=== PATIENT | female | born 1980 | race Caucasian/White ===

== ENCOUNTER 2016-10-29 11:55 | Inpatient (IN) ==
[2016-10-29] MEDS ORDERED: SODIUM CHLORIDE 1,000 ML IV STA (12:07)
[2016-10-29 12:33] LABS: BASOPHILS % (AUTO) 0.2 % (0.0-3.0); HEMATOCRIT 38.5 % (37.0-47.0); HEMOGLOBIN 14.3 g/dl (12.0-16.0); IMMATURE GRANULOCYTE % (AUTO) 0.7 % (0.0-5.0); LYMPHOCYTES % (AUTO) 4.8 (10.0-50.0); MEAN CORPUSCULAR HEMOGLOBIN 32.9 pg (27.0-31.0); MEAN CORPUSCULAR HGB CONC 37.1 (31.8-35.4); MEAN CORPUSCULAR VOLUME 88.5 fl (81.0-99.0); MONOCYTES # (AUTO) 0.9 K/uL (0.4-2.0); MONOCYTES % (AUTO) 4.7 (0-10); NEUTROPHILS # (AUTO) 17.8 K/ul (2.0-6.9); NEUTROPHILS % (AUTO) 89.6; PLATELET COUNT 253 10^3/uL (140-440); RED BLOOD COUNT 4.35 10^6/ul (4.20-5.40); WHITE BLOOD COUNT 19.86 K/ul (4.6-10.2)
[2016-10-29 12:41] LABS: BILIRUBIN,URINE Negative (NEGATIVE); KETONES,URINE Trace (NEGATIVE); LEUKOCYTE ESTERASE ,URINE 1+ (NEGATIVE); NITRITE,URINE Positive (NEGATIVE); PROTEIN,URINE 3+ (NEGATIVE); URINE, BLOOD 2+ (NEGATIVE)
[2016-10-29 12:42] LABS: ADD URINE MICROSCOPIC YES
[2016-10-29 12:48] LABS: FLU INTERNAL QC INTERNAL QC VALID; RAPID FLU A NEGATIVE (NEGATIVE); RAPID FLU B NEGATIVE (NEGATIVE)
[2016-10-29 12:52] LABS: SERUM PREGNANCY INTERNAL QC INTERNAL QC VALID
[2016-10-29 12:58] LABS: ALANINE AMINOTRANSFERASE 19 U/L (12-78); ALBUMIN/GLOBULIN RATIO 0.75; ALKALINE PHOSPHATASE 112 U/L (42-98); ANION GAP 18.2; ASPARTATE AMINO TRANSFERASE 17 U/L (15-37); BILIRUBIN,TOTAL 1.14 mg/dL (0.00-1.20); BLOOD UREA NITROGEN 12 mg/dL (7-18); CARBON DIOXIDE 22 mmol/L (21-32); CHLORIDE 100 mmol/L (98-107); CREATINE KINASE 19 U/L; GLUCOSE 103 mg/dL (70-110); POTASSIUM 3.2 mmol/L (3.5-5.10); SODIUM 137 mmol/L (136-145)
--- NOTE | 2016-10-29 13:14 | DI ---
EXAM: Two views of the chest. History: Cough. Comparison: Chest radiograph 03/23/2011 Findings: Heart size is normal. No focal consolidation. No appreciable pleural fluid and no pneum othorax. No acute osseous abnormalities. Impression: No acute cardiopulmonary process.
--- NOTE | 2016-10-29 13:30 | CT ---
EXAM: CT Abdomen without contrast. CT Pelvis without contrast. HISTORY: Fever. Lower abdominal pain. Dysuria. Low back pain. COMPARISON: None available. TECHNIQUE: Multiple axial images of the abdomen and pelvis were obtained without intravenous contra st. Images were reformatted in the coronal plane. FINDINGS: Please note that evaluation of the abdominal and pelvic structures is limited due to lack of intravenous contrast. The lung bases are clear. Degenerative changes present at L5-S1. Gallbladder is absent. The liver is enlarged. The pancreas, spleen, and adrenal glands demonstrate normal contour. No calcified renal stones or hydronephrosis identified.. There is moderate fluid distension of multiple small bowel loops without wall thickening or transiti on point. Colon is normal in caliber. Probable normal appendix on sagittal image 82 and axial imag e 90. Uterus demonstrates normal contour. Urinary bladder is not well distended. No free fluid or free air identified. Mild atherosclerotic calcifications are present. IMPRESSION: 1. Enteritis. 2. Hepatomegaly.
[2016-10-29] MEDS ORDERED: ZOFRAN 4 MG/2 ML IVP STA (13:49)
[2016-10-29] MEDS ORDERED: MORPHINE 4 MG/ML SYRINGE IVP STA (13:49)
[2016-10-29] MEDS ORDERED: ROCEPHIN 1 GM in SODIUM CHLORIDE 50 ML IV STA (13:50)
--- NOTE | 2016-10-29 13:51 | ED.PDOC ---
General ED Provider: Dr. JE GILBERT Chief Complaint: Urinary Problem Stated Complaint: DYSURIA, FLANK AND ABDOMINAL PAIN Time Seen by Physician: 12:00 (ONGOINGX 1 WEEK BUT WORSE ) Mode of Arrival: Wheelchair Information Source: Patient Exam Limitations: No limitations Primary Care Provider: SHARAD GREGORIO Nursing and Triage Documentation Reviewed and Agree: Yes (SEEN WITH ALEXIS AT BEDSIDE ) GI Complaint Exam - Abdominal Pain Complaint/Exam Onset: Gradual Duration: 1 WEEK Review of Systems - Review Of Systems Constitutional: Reports: Malaise, Weakness, Sweats, Loss of appetite Eyes: Reports: No symptoms Ears, Nose, Mouth, Throat: Reports: No symptoms Respiratory: Reports: No symptoms Cardiac: Reports: No symptoms GI: Reports: Abdominal pain (LEFT FLANK PAIN) : Reports: Dysuria Musculoskeletal: Reports: No symptoms Skin: Reports: No symptoms Neurological: Reports: No symptoms Endocrine: Reports: No symptoms Hematologic/Lymphatic: Reports: No symptoms All Other Systems: Reviewed and Negative Past Medical History - Past Medical History Previously Healthy: Yes Endocrine: Reports: None Cardiovascular: Reports: None Respiratory: Reports: None Hematological: Reports: None Gastrointestinal: Reports: None Genitourinary: Reports: None Neuro/Psych: Reports: None Musculoskeletal: Reports: None Cancer: Reports: None Last Menstrual Period: 3 WEEKS - Surgical History General Surgical History: Reports: None - Family History Family History: Reports: None - Social History Smoking Status: Current every day smoker Hx Substance Use: No Alcohol Screening: Occasionally - Immunizations Tetanus Shot up to Date: No Physical Exam - Physical Exam Appearance: Ill-appearing Ill-appearing: Mild Pain Distress: Mild Eyes: CHRIS, EOMI, Conjunctiva clear ENT: Ears normal, Nose normal, Oropharynx normal Respiratory: Airway patent, Breath sounds clear, Breath sounds equal, Respirations nonlabored Cardiovascular: RRR, Pulses normal, No rub, No murmur GI/: Soft, Nontender, No masses, Bowel sounds normal, No Organomegaly Musculoskeletal: Normal strength, ROM intact, No edema, No calf tenderness Skin: Warm, Dry, Normal color Neurological: Sensation intact, Motor intact, Reflexes intact, Cranial nerves intact, Alert, Oriented Psychiatric: Affect appropriate, Mood appropriate Interpretation - Radiology Interpretation Radiology Interpretation By: Radiologist Radiology Results: No acute changes Re-Evaluation - Re-Evaluation Time of Re-Evaluation: 13:00 Status: Unchanged Vital Signs Stable: Yes Pain Level: 4 Appearance: NAD Lungs: Clear Skin: Warm and Dry Neuro: Alert and Oriented X3 CV: RRR - Re-Evaluation Status: Unchanged Vital Signs Stable: Yes Pain Level: 4 Appearance: NAD Skin: Warm and Dry Neuro: Alert and Oriented X3 CV: RRR Physician Notification - Case Discussed Physician Notified: HOSPITALIST Time of Notification: 13:54 Admit To: Inpatient Critical Care Note - Critical Care Note Total Time (mins): 0 Course - Course Hematology/Chemistry: 10/29/16 12:10 10/29/16 12:10 Orders, Labs, Meds: Lab Review 10/29/16 10/29/16 10/29/16 12:10 12:20 12:40 WBC 19.86 H RBC 4.35 Hgb 14.3 Hct 38.5 MCV 88.5 MCH 32.9 H MCHC 37.1 H RDW Coeff of Axel 11.7 Plt Count 253 Immature Gran % (Auto) 0.7 Neut % (Auto) 89.6 Lymph % (Auto) 4.8 L [place] % (Auto) 4.7 Eos % (Auto) 0.0 Baso % (Auto) 0.2 Immature Gran # (Auto) 0.1 Neut # 17.8 H Lymph # 1.0 [place] # 0.9 Eos # 0.0 Baso # 0.0 Sodium 137 Potassium 3.2 L Chloride 100 Carbon Dioxide 22 Anion Gap 18.2 BUN 12 Creatinine 0.80 Estimated GFR (MDRD) 81.00 BUN/Creatinine Ratio 15.00 Glucose 103 Lactic Acid 9.9 Calcium 9.0 Total Bilirubin 1.14 AST 17 ALT 19 Alkaline Phosphatase 112 H Total Creatine Kinase 19 Troponin I < 0.0100 Total Protein 7.0 Albumin 3.0 L Globulin 4.0 Albumin/Globulin Ratio 0.75 Procalcitonin 1.65 Serum , Qual Negative Urine Color Yellow Urine Clarity Turbid Urine pH 6.0 Ur Specific [place] 1.020 Urine Protein 3+ Urine Glucose (UA) Negative Urine Ketones Trace Urine Blood 2+ Urine Nitrite Positive Urine Bilirubin Negative Urine Urobilinogen 1.0 Ur Leukocyte Esterase 1+ Urine Microscopic WBC Ur Squamous Epith Cells Not present Influenza A (Rapid) Negative Influenza B (Rapid) Negative Orders Category Date Time Status EKG-(ED ONLY) Stat CARDIO 10/29/16 12:01 Completed ED IV/MEDIPORT/POWERPORT .ONCE EMERGENCY 10/29/16 12:01 Active ED IV/MEDIPORT/POWERPORT .ONCE EMERGENCY 10/29/16 12:07 Active BLOOD CULTURE Stat LAB 10/29/16 12:10 Received CBC W/ AUTO DIFF Stat LAB 10/29/16 12:10 Completed COMPREHENSIVE METABOLIC PANEL Stat LAB 10/29/16 12:10 Completed CREATINE KINASE Stat LAB 10/29/16 12:10 Completed LACTIC ACID Stat LAB 10/29/16 12:10 Completed MOLECULAR GROUP A STREP Stat LAB 10/29/16 12:20 Results PROCALCITONIN Stat LAB 10/29/16 12:40 Completed RAPID FLU A/B Stat LAB 10/29/16 12:20 Completed SERUM Stat LAB 10/29/16 12:40 Completed STREP SCREEN Stat LAB 10/29/16 12:20 Results TROPONIN I Stat LAB 10/29/16 12:10 Completed UA [URINALYSIS C & S IF INDICATED] Stat LAB 10/29/16 12:20 Completed URINE CULTURE Stat LAB 10/29/16 12:20 Received 0.9 % Sodium Chloride [Saline Flush] MEDS 10/29/16 12:07 Active 1 syr IVF PRN PRN Ceftriaxone Sodium [Rocephin] 1 gm MEDS 10/29/16 13:50 Ordered 0.9 % Sodium Chloride [Sodium Chloride] 50 ml IV ONCE Morphine Sulfate [Morphine 4 mg/ml Syringe] MEDS 10/29/16 13:49 Stat 4 mg IVP ONCE STA Ondansetron HCl/Pf [Zofran 4 mg/2 ml] MEDS 10/29/16 13:49 Stat 4 mg IVP ONCE STA Sodium Chloride 0.9% [Sodium Chloride] 1,000 ml MEDS 10/29/16 12:07 Discontinued IV BOLUS CHEST, 2 VIEWS PA & LAT Stat RADS 10/29/16 12:[address] ABDOMEN/PELVIS WO CONTRAST Stat RADS 10/29/16 12:05 Completed Medications Generic Name Dose Route Start Last Admin Trade Name Freq PRN Reason Stop Dose Admin Ceftriaxone Sodium 1 gm/ 50 mls @ 75 mls/hr 10/29/16 13:50 Sodium Chloride IV 10/29/16 14:29 ONCE STA Sodium Chloride 1 syr 10/29/16 12:07 Saline Flush IVF PRN PRN To flush IV Discontinued Medications Generic Name Dose Route Start Last Admin Trade Name Freq PRN Reason Stop Dose Admin Sodium Chloride 1,000 mls @ 1,000 mls/hr 10/29/16 12:07 10/29/16 13:06 Sodium Chloride IV 10/29/16 13:06 1,000 mls/hr BOLUS STA Administration Morphine Sulfate 4 mg 10/29/16 13:49 Morphine 4 Mg/Ml Syringe IVP 10/29/16 13:50 ONCE STA Ondansetron HCl 4 mg 10/29/16 13:49 Zofran 4 Mg/2 Ml IVP 10/29/16 13:50 ONCE STA Vital Signs: Temp Pulse Resp BP Pulse Ox 10/29/16 11:57 102 F H 138 H 20 98/66 97 Departure - Departure Time of Disposition: 13:54 Disposition: ADMITTED INPATIENT Discharge Problem: Urinary symptoms, Urinary tract infectious disease Condition: Good Pt referred to PMD for follow-up: No Additional Instructions: Please call your Family Physician as soon as possible to schedule a follow-up appointment. Allergies/Adverse Reactions: Allergies No Known Allergies Allergy (Unverified 10/29/16 11:56) Home Medications: Ambulatory Orders 1 [No Reported Medications] 10/29/16 Disposition Discussed With: Patient
[2016-10-29] MEDS ORDERED: ROCEPHIN ONE (13:56)
[2016-10-29] MEDS ORDERED: SODIUM CHLORIDE 1,000 ML IV SCH (14:00)
[2016-10-29 15:40] VITALS: BMI 17.4
[2016-10-29] MEDS ORDERED: TYLENOL PO STA (15:57)
[2016-10-29] MEDS ORDERED: INVANZ ONE (16:16)
[2016-10-29] MEDS: D5%-NS-KCL 20 MEQ/L IV SOL 1,000 ML IV SCH (16:22)
[2016-10-29] MEDS: INVANZ 1 GM in SODIUM CHLORIDE 100 ML IV SCH (16:22)
[2016-10-29] MEDS ORDERED: SODIUM CHLORIDE 100 ML IV ONE (16:22)
[2016-10-29] MEDS ORDERED: [UNRECOGNIZED DRUG - MIXTURE] IV SCH (16:30)
[2016-10-29 16:36] LABS: COCAIN SCREEN,URINE NEGATIVE (NEGATIVE)
[2016-10-29] MEDS ORDERED: MORPHINE 4 MG/ML SYRINGE IVP ONE (17:00)
--- NOTE | 2016-10-29 18:44 | CT ---
Exam: CT angiography of the chest History: Chest and back pain, evaluate for dissecting aneurysm Technique: [address] of the chest following intravenous contrast utilizing CT angiography protocol pe r multiplanar and three-dimensional reformations were performed. FINDINGS: Lung windows show mild emphysematous change. No infiltrative opacities. The exam is lashaun hnically adequate for evaluation of pulmonary arteries and aorta. There are no pulmonary artery pollo ling defects. The aorta is normal. The heart, great vessels and pericardium appear normal. No abn ormalities of the chest wall soft tissues or bony thorax. Impression: 1. No aortic aneurysm or dissection. No abnormalities of the aorta. 2. No pulmonary artery thrombus 3. Mild to moderate emphysematous change 4. No acute findings of the chest
[2016-10-29] MEDS: DILAUDID 1 MG/ML SYRINGE IVP PRN (20:08)
[2016-10-29] MEDS ORDERED: TYLENOL PO PRN (20:54)
[2016-10-29 21:45] LABS: CREATINE KINASE 21 U/L
[2016-10-29] MEDS ORDERED: TYLENOL ONE (22:03)
[2016-10-30] MEDS: D5%-NS-KCL 20 MEQ/L IV SOL 1,000 ML IV SCH ×3 (01:27→21:04)
[2016-10-30 04:04] LABS: HEMATOCRIT 31.9 % (37.0-47.0); HEMOGLOBIN 11.6 g/dl (12.0-16.0); MEAN CORPUSCULAR HEMOGLOBIN 32.4 pg (27.0-31.0); MEAN CORPUSCULAR HGB CONC 36.4 (31.8-35.4); MEAN CORPUSCULAR VOLUME 89.1 fl (81.0-99.0); PLATELET COUNT 192 10^3/uL (140-440); RED BLOOD COUNT 3.58 10^6/ul (4.20-5.40); WHITE BLOOD COUNT 26.56 K/ul (4.6-10.2)
[2016-10-30 04:14] LABS: ANISOCYTOSIS NOT PRESENT (NOT PRESENT)
[2016-10-30 04:24] LABS: ALBUMIN 2.2 g/dL (3.4-5.0); ALBUMIN/GLOBULIN RATIO 0.65; ANION GAP 13.5; BILIRUBIN,TOTAL 0.6 mg/dL (0.00-1.20); BUN/CREATININE RATIO 12.76; CREATININE 0.94 mg/dL (0.60-1.30); POTASSIUM 3.5 mmol/L (3.5-5.10); TOTAL PROTEIN 5.6 g/dL (6.4-8.2)
[2016-10-30 04:31] LABS: CREATINE KINASE 20 U/L
[2016-10-30] MEDS: DILAUDID 1 MG/ML SYRINGE IVP PRN ×5 (07:13→23:51)
[2016-10-30] MEDS: INVANZ 1 GM in SODIUM CHLORIDE 100 ML IV SCH (08:36)
[2016-10-30] MEDS: LOVENOX SUBCUT SCH (08:37)
[2016-10-30] MEDS ORDERED: ROCEPHIN 1 GM in SODIUM CHLORIDE 100 ML IV SCH (09:00)
[2016-10-30] MEDS: TYLENOL PO PRN (18:24)
[2016-10-31] MEDS: TYLENOL PO PRN ×2 (02:05→10:29)
[2016-10-31] MEDS: DILAUDID 1 MG/ML SYRINGE IVP PRN ×5 (04:29→22:37)
[2016-10-31] MEDS: D5%-NS-KCL 20 MEQ/L IV SOL 1,000 ML IV SCH ×4 (04:41→17:47)
[2016-10-31 05:09] LABS: BASOPHILS % (AUTO) 0.1 % (0.0-3.0); EOSINOPHILS % (AUTO) 0.1 % (0.0-7.0); HEMATOCRIT 29.4 % (37.0-47.0); HEMOGLOBIN 10.5 g/dl (12.0-16.0); IMMATURE GRANULOCYTE % (AUTO) 0.5 % (0.0-5.0); LYMPHOCYTES # (AUTO) 1.3 K/uL (0.60-3.4); LYMPHOCYTES % (AUTO) 8.7 (10.0-50.0); MEAN CORPUSCULAR HEMOGLOBIN 32.2 pg (27.0-31.0); MEAN CORPUSCULAR HGB CONC 35.7 (31.8-35.4); MEAN CORPUSCULAR VOLUME 90.2 fl (81.0-99.0); MONOCYTES # (AUTO) 1.5 K/uL (0.4-2.0); MONOCYTES % (AUTO) 9.5 (0-10); NEUTROPHILS # (AUTO) 12.4 K/ul (2.0-6.9); NEUTROPHILS % (AUTO) 81.1; PLATELET COUNT 195 10^3/uL (140-440); RED BLOOD COUNT 3.26 10^6/ul (4.20-5.40); WHITE BLOOD COUNT 15.34 K/ul (4.6-10.2)
[2016-10-31 05:30] LABS: ALBUMIN 1.9 g/dL (3.4-5.0); ALBUMIN/GLOBULIN RATIO 0.66; ANION GAP 9.1; BILIRUBIN,TOTAL 0.43 mg/dL (0.00-1.20); BUN/CREATININE RATIO 14.28; CALCIUM 7.7 mg/dL (8.2-10.2); CREATININE 0.7 mg/dL (0.60-1.30); POTASSIUM 3.1 mmol/L (3.5-5.10); TOTAL PROTEIN 4.8 g/dL (6.4-8.2)
[2016-10-31] MEDS: LOVENOX SUBCUT SCH (08:50)
[2016-10-31] MEDS: INVANZ 1 GM in SODIUM CHLORIDE 100 ML IV SCH (08:50)
[2016-10-31 16:05] LABS: BILIRUBIN,URINE Negative (NEGATIVE); KETONES,URINE Negative (NEGATIVE); LEUKOCYTE ESTERASE ,URINE Trace (NEGATIVE); NITRITE,URINE Negative (NEGATIVE); PROTEIN,URINE 1+ (NEGATIVE); URINE, BLOOD 2+ (NEGATIVE)
[2016-10-31 16:06] LABS: ADD URINE MICROSCOPIC YES
[2016-10-31 16:08] LABS: BACTERIA,URINE TRACE (NOT PRESENT)
--- NOTE | 2016-10-31 17:35 | CT ---
EXAM: CT abdomen and pelvis without contrast. HISTORY: Increased abdominal pain. TECHNIQUE: Multi-slice transaxial helical CT. Coronal and sagital reformations were performed. COMPARISON: 10/29/2016. FINDINGS: The heart is normal in size. A new small right-sided pleural effusion is seen. Bibasilar subsegment al atelectasis/linear consolidations are present. There is diffuse bilateral reticular nodular opac ities in the lung bases, right greater than left. Emphysematous changes of the lungs are present. Evaluation of the solid organs is limited without IV contrast. The inferior edge of the liver slight ly extends into the pelvis, unchanged. The gallbladder has been removed. The spleen measures up to 13.2 cm in length. There is no evidence of intrahepatic biliary ductal dilation. The pancreas is not well visualized. No definite hydronephrosis or renal calculus is seen. The bowel is not dilated. The urinary bladder appears unremarkable. Diffuse fluid filled small jerilyn l loops are again seen, not significantly changed. Evaluation the bowel is limited without IV and o ral contrast. Low intra-abdominal fat also contributes to limited evaluation of the bowel. There i s moderate to advanced disc disease at L5-S1. IMPRESSION: 1. New small right-sided pleural effusion with adjacent atelectasis or pneumonia. 2. Right greater than left bibasilar reticular nodular opacities compatible with bronchiolitis. 3. Mild pulmonary emphysema. 4. Hepatosplenomegaly 5. Similar fluid-filled small bowel loops compatible with enteritis. 6. Limited exam secondary to lack of contrast. 7. Moderate to advanced L5-S1 disc disease.
[2016-10-31 18:42] LABS: ABG BASE EXCESS -5 (-2.0-2.0); ABG HCO3 18.9 (22.0-26.0); ABG PCO2 27.3 mmHg (35-45); ABG PH 7.449 (7.35-7.45); ABG TCO2 20 (22.0-28.0)
[2016-10-31] MEDS ORDERED: GENTAMICIN SULFATE ONE (21:15)
[2016-10-31] MEDS: GENTAMICIN SULFATE IV SCH (21:21)
[2016-10-31] MEDS: SODIUM CHLORIDE IV SCH (21:21)
[2016-11-01] MEDS: TYLENOL PO PRN (02:20)
[2016-11-01] MEDS: DILAUDID 1 MG/ML SYRINGE IVP PRN ×5 (02:44→20:55)
[2016-11-01] MEDS: D5%-NS-KCL 20 MEQ/L IV SOL 1,000 ML IV SCH ×2 (03:30→19:12)
[2016-11-01] MEDS ORDERED: GENTAMICIN SULFATE ONE (04:53)
[2016-11-01] MEDS: GENTAMICIN SULFATE IV SCH ×3 (04:57→20:40)
[2016-11-01] MEDS: SODIUM CHLORIDE IV SCH ×3 (04:57→20:40)
[2016-11-01 05:18] LABS: BASOPHILS % (AUTO) 0.1 % (0.0-3.0); EOSINOPHILS % (AUTO) 0.3 % (0.0-7.0); HEMATOCRIT 28.2 % (37.0-47.0); IMMATURE GRANULOCYTE % (AUTO) 0.6 % (0.0-5.0); LYMPHOCYTES # (AUTO) 1.3 K/uL (0.60-3.4); LYMPHOCYTES % (AUTO) 16.4 (10.0-50.0); MEAN CORPUSCULAR HEMOGLOBIN 31.8 pg (27.0-31.0); MEAN CORPUSCULAR HGB CONC 35.5 (31.8-35.4); MEAN CORPUSCULAR VOLUME 89.8 fl (81.0-99.0); MONOCYTES # (AUTO) 1.1 K/uL (0.4-2.0); MONOCYTES % (AUTO) 14.1 (0-10); NEUTROPHILS # (AUTO) 5.3 K/ul (2.0-6.9); NEUTROPHILS % (AUTO) 68.5; PLATELET COUNT 168 10^3/uL (140-440); RED BLOOD COUNT 3.14 10^6/ul (4.20-5.40); WHITE BLOOD COUNT 7.79 K/ul (4.6-10.2)
[2016-11-01 05:37] LABS: ALBUMIN 1.7 g/dL (3.4-5.0); ALBUMIN/GLOBULIN RATIO 0.53; ANION GAP 9.3; BILIRUBIN,TOTAL 0.41 mg/dL (0.00-1.20); BUN/CREATININE RATIO 10.44; CALCIUM 7.9 mg/dL (8.2-10.2); CREATININE 0.67 mg/dL (0.60-1.30); POTASSIUM 3.3 mmol/L (3.5-5.10); TOTAL PROTEIN 4.9 g/dL (6.4-8.2)
[2016-11-01] MEDS: LOVENOX SUBCUT SCH (08:09)
[2016-11-01] MEDS: INVANZ 1 GM in SODIUM CHLORIDE 100 ML IV SCH (08:10)
--- NOTE | 2016-11-01 11:21 | ECHO2D ---
Date of Exam: 10/30/16 Ordering Physician: HOSPITALIST--YUMIKO Reason for Echo: CHEST PAIN M-Mode Normal Adult Results LV Dimensions Normal Adult Results AoV Opening excursions >1.6 >1.6 LVEDD-base- 3.5-5.8 4.3 Ao root dimensions 2.0-3.7 3.2 LVESD-base- 3.1-4.6 L. Atrium dimensions 1.9-3.8 3.8 Post. Wall thickness 0.8-1.1 0.9 IV septum (thickness) 0.7-1.2 1.0 Post. Wall excursion 0.72-1.3 NORMAL Septal motion NORMAL Systolic motion R. Ventricular cavity 1.5-2.0 NORMAL LVEF 60% 54% Paradoxical septal wall motion NORMAL 2-D : 2-D M Mode Echocardiogram was performed using apical four chamber and left parasternal long and short axis views. Mitral, tricuspid and aortic valves appear to be normal. Contractility of the left ventricle seems to be normal, so is the cavity size. Left atrial cavity size and aortic root appear to be normal. There is no pericardial effusion. There is no thrombus noted in the left ventricular or left aortic cavity. No mitral valve prolapse noted. M-MODE: MV: NORMAL AV: NORMAL TV: NORMAL PV: CHAMBER SIZE: NORMAL WALL MOTION: NORMAL PERICARDIUM: NORMAL INTERPRETATION: 1. NORMAL 2 "D" "M" MODE ECHO MTDD
--- NOTE | 2016-11-01 11:29 | STRESSECHO ---
Date of Test: 10/30/16 Reason for Exam: CHEST PAIN Ordering Physician: HOSPITALIST--YUMIKO Current Medications: LOVENOX, DILAUDID , TYLENOL Resting EKG: SINUS RHYTHM/TACHYCARDIA Target Heart Rate: 155/183 STAGE MPH/GRADE HEART RATE BPM BLOOD PRESSURE mmhg RHYTHM S-T SEGMENT +/- UP DOWN SYMPTOMS,COMMENTS At Rest 115 110/78 SR X NONE 1 1.7/10% 2 2.5/12% 3 3.4/14% 4 4.2/16% 5 5.0/18% Immediately after 158 SR X SHORT OF BREATH Durations of Exercise: 2:32 Maximum Heart Rate Reached: 127 Reason for Termination: SHORT OF BREATH 3 MIN POST EXERCISE: 127 HR, 128/80 MMHG BP, SINUS RHYTHM, +/-, NO COMMENTS INTERPRETATION: 90% WITH EXERCISE ON ROOM AIR, DROPPING OXYGEN SATURATION WITH EXERCISE METS 4.6 1. NO EVIDENCE OF ISCHEMIA BY ST-T WAVE CHANGES 2. POOR EXERCISE TOLERANCE 3. BLOOD PRESSURE RESPONSE: NORMAL 4. NO ARRHYTHMIAS 5. NO CHEST PAIN OR CHEST DISCOMFORT NORMAL LEFT VENTRICULAR CONTRACTILITY--RESTING AND POST EXERCISE MTDD
--- NOTE | 2016-11-01 11:41 | ECHOSTRESS ---
Date of Exam: 10/30/16 Ordering Physician: HOSPITALIST--YUMIKO Reason for Echo: CHEST PAIN, STRESS TEST --NO ISCHEMIA M-Mode Normal Adult Results LV Dimensions Normal Adult Results AoV Opening excursions >1.6 LVEDD-base- 3.5-5.8 Ao root dimensions 2.0-3.7 LVESD-base- 3.1-4.6 L. Atrium dimensions 1.9-3.8 Post. Wall thickness 0.8-1.1 IV septum (thickness) 0.7-1.2 Post. Wall excursion 0.72-1.3 Septal motion Systolic motion R. Ventricular cavity 1.5-2.0 LVEF 60% Paradoxical septal wall motion 2-D: NORMAL LEFT VENTRICULAR CONTRACTILITY--RESTING AND POST EXERCISE M-MODE: MV: AV: TV: PV: CHAMBER SIZE: WALL MOTION: NORMAL LEFT VENTRICULAR CONTRACTILITY--RESTING AND POST EXERCISE PERICARDIUM: INTERPRETATION: 1. NORMAL LEFT VENTRICULAR CONTRACTILITY--RESTING AND POST EXERCISE MTDD
[2016-11-01 12:09] LABS: AMYLASE 27 U/L (25-115); LIPASE 13 U/L (8-78)
--- NOTE | 2016-11-01 12:54 | CONS ---
DATE OF CONSULTATION: 10/30/16 REASON FOR CONSULTATION: Chest pain HISTORY OF PRESENT ILLNESS: The patient is a 35 year old white female hospitalized through the emergency room on 10/29/16 with upper respiratory tract infection, bronchitis with WBC 26, 000 and the patient also had chest pain which seems to me like pleuritic type center of the chest related to exertion. The patient was earlier seen in the ER with urinary tract infection with a fever of 102. REVIEW OF SYSTEMS: CONSTITUTIONAL: No night sweats. Weakness and fatigue. No fever or chills. HEENT: Eyes: No visual changes. No eye pain. No eye discharge. ENT: No runny nose. No epistaxis. No sinus pain. No sore throat. No odynophagia. No ear pain. No congestion. RESPIRATORY: Cough and congestion with yellowish sputum production. No hemoptysis. CARDIOVASCULAR: No angina symptoms. No CHF symptoms. No atypical chest pain for CAD. No palpitations. No shortness of breath. Chest pain in the center of the chest with coughing and congestion, sharp pains. No exertional chest discomfort or chest pain. No PND and No orthopnea. GASTROINTESTINAL: No abdominal pain. No nausea or vomiting. No diarrhea or constipation. No hematemesis. No hematochezia. Poor appetite. GENITOURINARY: No urgency. No frequency. No dysuria. No hematuria. No obstructive symptoms. No discharge. No pain. No significant abnormal bleeding. MUSCULOSKELETAL: No musculoskeletal pain. No joint swelling. NEUROLOGICAL: No headache. No neck pain. No syncope. No seizures. No dizziness. PSYCHIATRIC: Not anxious. No depression. No suicidal thoughts. No homicidal thoughts. SKIN: No rash. No lesions. No wounds. ENDOCRINE: No unexplained weight loss. No weight gain. HEMATOLOGIC/LYMPHATIC: No anemia. No purpura. No petechiae. No prolonged or excessive bleeding. No palpable lymph nodes. MEDICATIONS: None ALLERGIES: None SOCIAL/PERSONAL/FAMILY HISTORY: The patient is living by herself. She smokes more than a pack a day. According to her socially. History of some drug abuse. She doesn't want to elaborate on it. PHYSICAL EXAMINATION: GENERAL: The patient is oriented to time, place and person . VITAL SIGNS: Temperature 97.8, pulse 86, respiratory rate 20, blood pressure 102 /60 and pulse ox 97%. HEENT: Head normocephalic, atraumatic. Eyes: Extraocular muscles are intact. Pupils are equal, round and reactive to light and accommodation. Ears: No lesions. Nose appeared normal. Throat: No exudate or erythema. NECK: Supple. No JVP, no carotid bruit. No lymphadenopathy or thyromegaly. LUNGS: Mild wheeze with decreased breath sounds bilaterally. Percussion note normal. Chest symmetrical. HEART: S1, S2, no S3. No murmurs. No cyanosis or clubbing. No ascites. Pulses: Dorsalis pedis and posterior tibial pulses +1 to +2 both sides. ABDOMEN: Soft. Nontender. Bowel sounds active. No CVA tenderness. No mass felt. EXTREMITIES: No edema. Full range of motion of all extremities, equal. NEUROLOGIC: No focal deficit. Cranial nerves II through XII are grossly intact. No headache, no double vision or headache. SKIN: Not dry. Intact. Turgor - normal. LYMPHATIC: No palpable lymph nodes/no lymphedema. MUSCULOSKELETAL: Normal joints with no swelling. Muscle tone is normal. LABS: Hgb 11.6, hct 31, WBC 26,000 normal differential, creatinine 0.9, BUN 12, potassium 3.5. EKG times 2 sinus rhythm. No acute changes. D-dimer normal. Estimated GFR 67cc per minute. ASSESSMENT: 1. Chest pain seems to be non-cardiac sharp with cough and congestion. The patient has chronic bronchitis with heavy smoking. I don't think that the patient's chest pain is coming from coronary insufficiency. 2. UTI 3. History of smoking. PLAN: 1. EKG's in sinus rhythm, no acute changes x2. 2. The patient's telemetry strips doesn't show any ST-T wave changes. 3. The patient's character of the pain is not pointing towards coronary insufficiency. 4. Echocardiograph done this morning showed normal LV contractility, no effusion all the valves are normal 5. Stress echo performed was negative for ischemia. FINAL CONCLUSION: 1. Chest pain noncardiac. 2. Agreed with other management THANKS FOR REFERRAL. WILL FOLLOW. [facility]RIC CENTERMichelle
--- NOTE | 2016-11-01 13:01 | PCM.CONS ---
CONSULTING PROVIDER: Dr. MELISSA SMART ATTENDING PROVIDER: Dr. Kelli CALDERON DATE OF SERVICE: 11/01/16 SUBJECTIVE: This 35 year old WHITE/ F was hospitalized 10/29/16. The patient is seen in consultation hospitalized with UTI and chest pain consistent with pleuritic pain. Cardiac workup is negative. The patient is feeling better and is hungry. No vomiting, no chest pain. REVIEW OF SYSTEMS: CONSTITUTIONAL: No night sweats. No fatigue, malaise, lethargy. No fever or chills. HEENT: Eyes: No visual changes. No eye pain. No eye discharge. ENT: No runny nose. No epistaxis. No sinus pain. No odynophagia. No congestion. RESPIRATORY: No cough, no congestion. No hemoptysis. CARDIOVASCULAR: No angina symptoms. No CHF symptoms. No atypical chest pain for CAD. No palpitations. No shortness of breath. GASTROINTESTINAL: No abdominal pain. No nausea or vomiting. No diarrhea or constipation. No hematemesis. No hematochezia. GENITOURINARY: No urgency. No frequency. No dysuria. No hematuria. No obstructive symptoms. No discharge. No pain. No significant abnormal bleeding. MUSCULOSKELETAL: No musculoskeletal pain; no joint swelling. NEUROLOGICAL: Awake, alert, oriented to time, place and person. No headache. No neck pain. No syncope. No seizures. No dizziness. PSYCHIATRIC: Not anxious. No depression. No suicidal thoughts. No homicidal thoughts. SKIN: No rash. No lesions. No wounds. ENDOCRINE: No unexplained weight loss. No weight gain. HEMATOLOGIC/LYMPHATIC: No anemia. No purpura. No petechiae. No prolonged or excessive bleeding. No palpable lymph nodes. PHYSICAL EXAMINATION: GENERAL: The patient is awake, alert and oriented, lying in bed in no distress. VITAL SIGNS: Temperature 97.7 F, Pulse 60, Respiratory Rate 20, BP 90/68, Pulse Ox 97% HEENT: Head normocephalic, atraumatic. Eyes: Extraocular muscles are intact. Pupils are equal, round and reactive to light and accommodation. Ears: No lesions. Nose appeared normal. Throat: No exudate or erythema. NECK: Supple. No JVD, no carotid bruit. No lymphadenopathy or thyromegaly. LUNGS: Clear to auscultation. Percussion note normal. Chest symmetrical. HEART: S1, S2, no S3. No murmurs. No cyanosis or clubbing. No ascites. Pulses: Dorsalis pedis and posterior tibial pulses +1 to +2 both sides. ABDOMEN: Soft. Non-tender. Bowel sounds active. No CVA tenderness. No mass felt. EXTREMITIES: No edema. Full range of motion of all extremities, equal. NEUROLOGIC: No focal deficit. Cranial nerves II through XII are grossly intact. No headache, no double vision or headache. SKIN: Not dry. Intact. Turgor-normal. LYMPHATIC: No palpable lymph nodes/no lymphedema. MUSCULOSKELETAL: Normal joints with no swelling. Muscle tone is normal. LAB REVIEW: 11/01/16 04:55 11/01/16 04:55 11/01/16 04:55: WBC 7.79 D, RBC 3.14 L, Hgb 10.0 L, Hct 28.2 L, MCV 89.8, MCH 31.8 H, MCHC 35.5 H, RDW Coeff of Axel 12.3, Plt Count 168, Immature Gran % (Auto ) 0.6, Neut % (Auto) 68.5, Lymph % (Auto) 16.4, [place] % (Auto) 14.1 H, Eos % ( Auto) 0.3, Baso % (Auto) 0.1, Immature Gran # (Auto) 0.1, Neut # 5.3, Lymph # 1.3, [place] # 1.1, Eos # 0.0, Baso # 0.0, Sodium 141, Potassium 3.3 L, Chloride 112 H, Carbon Dioxide 23, Anion Gap 9.3, BUN 7, Creatinine 0.67, Estimated GFR ( MDRD) 99.00, BUN/Creatinine Ratio 10.44, Glucose 103, Calcium 7.9 L, Total Bilirubin 0.41, AST 18, ALT 20, Alkaline Phosphatase 81, Total Protein 4.9 L, Albumin 1.7 L, Globulin 3.2, Albumin/Globulin Ratio 0.53 10/31/16 18:42: B-Natriuretic Peptide 204 H 10/31/16 18:28: Puncture Site Rbrach, O2 Saturation 94.0 L, ABG pH 7.449, ABG pCO2 27.3 L, ABG pO2 65.0 L, ABG HCO3 18.9 L, ABG Total CO2 20 L, ABG Base Excess -5 L, FiO2 % 21.0 10/31/16 16:04: Urine Color Yellow, Urine Clarity Clear, Urine pH 6.0, Ur Specific [place] 1.010, Urine Protein 1+, Urine Glucose (UA) Negative, Urine Ketones Negative, Urine Blood 2+, Urine Nitrite Negative, Urine Bilirubin Negative, Urine Urobilinogen 1.0, Ur Leukocyte Esterase Trace, Urine Microscopic RBC 10-20, Urine Microscopic WBC 5-10, Ur Squamous Epith Cells 2-5, Urine Bacteria Trace ASSESSMENT: 1. Chest pain, noncardiac. 2 UTI, E. Coli 3. Other medical problems. 4. Cardiovascular status is stable. RECOMMENDATIONS/PLAN: 1. Discontinue telemetry. Plan and coordination of the patient's care discussed in the presence of Margin Analyst and Nurse. CONDITION: Stable. Thanks for the referral, I will sign off of case. SCRIBED BY: JACKIE BLOOD, Director Presales scribed while in presence of service performed by Dr. MELISSA SMART on 11/01/16 (0800)
--- NOTE | 2016-11-01 14:55 | CONS ---
DATE OF SERVICE: 10/31/16 CONSULT FOLLOWUP SUBJECTIVE: The patient is a 35 year old white female hospitalized with Urinary tract infection. The patient is being treated with IV antibiotics. The patient's condition seems to have improved. The consultation done because of chest pain which was more like a pleuritic type with bronchitis type of symptoms. REVIEW OF SYSTEMS: CONSTITUTIONAL: No night sweats. No fatigue, malaise, lethargy. No fever or chills. HEENT: Eyes: No visual changes. No eye pain. No eye discharge. ENT: No runny nose. No epistaxis. No sinus pain. No sore throat. No odynophagia. No ear pain. No congestion. RESPIRATORY: No cough, no congestion. No hemoptysis. CARDIOVASCULAR: No angina symptoms. No CHF symptoms. No atypical chest pain for CAD. No palpitations. No shortness of breath. No PND. No Orthopnea. GASTROINTESTINAL: No abdominal pain. No nausea or vomiting. No diarrhea or constipation. No hematemesis. No hematochezia. Appetite has improved. GENITOURINARY: No urgency. No frequency. No dysuria. No hematuria. No obstructive symptoms. No discharge. No pain. No significant abnormal bleeding. MUSCULOSKELETAL: No musculoskeletal pain. No joint swelling. No arthritis. NEUROLOGICAL: No headache. No neck pain. No syncope. No seizures. No dizziness. PSYCHIATRIC: Not anxious. No depression. No suicidal thoughts. No homicidal thoughts. SKIN: No rash. No lesions. No wounds. ENDOCRINE: No unexplained weight loss. No weight gain. HEMATOLOGIC/LYMPHATIC: No anemia. No purpura. No petechiae. No prolonged or excessive bleeding. No palpable lymph nodes. PHYSICAL EXAMINATION: GENERAL: The patient is oriented to time, place and person. VITAL SIGNS: Temperature 98.1, pulse 93, respiratory rate 18, blood pressure 95/ 66 and pulse ox 95%. HEENT: Head normocephalic, atraumatic. Eyes: Extraocular muscles are intact. Pupils are equal, round and reactive to light and accommodation. Ears: No lesions. Nose appeared normal. Throat: No exudate or erythema. NECK: Supple. No JVD, no carotid bruit. No lymphadenopathy or thyromegaly. LUNGS: Decreased breath sounds but clear to auscultation. Percussion note normal. Chest symmetrical. HEART: S1, S2, no S3. No murmurs. No cyanosis or clubbing. No ascites. Pulses: Dorsalis pedis and posterior tibial pulses +1 to +2 both sides. ABDOMEN: Soft. Nontender. Bowel sounds active. No CVA tenderness. No mass felt. EXTREMITIES: No edema. Full range of motion of all extremities, equal. NEUROLOGIC: No focal deficit. Cranial nerves II through XII are grossly intact. No headache, no double vision or headache. SKIN: Not dry. Intact. Turgor - normal. LYMPHATIC: No palpable lymph nodes/no lymphedema. MUSCULOSKELETAL: Normal joints with no swelling. Muscle tone is normal. ASSESSMENT: 1. Chest pain, noncardiac, the patient's stress test and echo was negative for ischemia. EKG unchanged with no acute changes. RECOMMENDATIONS: 1. Counseling for smoking done 2. Life style modifications advised 3. Coronary artery disease risk factors discussed CONDITION: Cardiovascular muro stable. MTDD
[2016-11-02 05:07] LABS: BASOPHILS % (AUTO) 0.2 % (0.0-3.0); EOSINOPHILS # (AUTO) 0.1 K/ul (0.0-0.7); EOSINOPHILS % (AUTO) 0.9 % (0.0-7.0); HEMATOCRIT 29.1 % (37.0-47.0); HEMOGLOBIN 10.4 g/dl (12.0-16.0); IMMATURE GRANULOCYTE % (AUTO) 0.4 % (0.0-5.0); LYMPHOCYTES # (AUTO) 1.7 K/uL (0.60-3.4); MEAN CORPUSCULAR HEMOGLOBIN 32.1 pg (27.0-31.0); MEAN CORPUSCULAR HGB CONC 35.7 (31.8-35.4); MEAN CORPUSCULAR VOLUME 89.8 fl (81.0-99.0); MONOCYTES # (AUTO) 1.5 K/uL (0.4-2.0); MONOCYTES % (AUTO) 14.4 (0-10); NEUTROPHILS # (AUTO) 6.8 K/ul (2.0-6.9); NEUTROPHILS % (AUTO) 67.1; PLATELET COUNT 192 10^3/uL (140-440); RED BLOOD COUNT 3.24 10^6/ul (4.20-5.40); WHITE BLOOD COUNT 10.13 K/ul (4.6-10.2)
[2016-11-02 05:27] LABS: ALBUMIN 1.9 g/dL (3.4-5.0); ALBUMIN/GLOBULIN RATIO 0.56; ANION GAP 10.2; BILIRUBIN,TOTAL 0.49 mg/dL (0.00-1.20); CALCIUM 8.1 mg/dL (8.2-10.2); CREATININE 0.75 mg/dL (0.60-1.30); POTASSIUM 3.2 mmol/L (3.5-5.10); TOTAL PROTEIN 5.3 g/dL (6.4-8.2)
[2016-11-02] MEDS: SODIUM CHLORIDE IV SCH ×3 (05:48→21:07)
[2016-11-02] MEDS: GENTAMICIN SULFATE IV SCH ×3 (05:48→21:07)
[2016-11-02] MEDS: D5%-NS-KCL 20 MEQ/L IV SOL 1,000 ML IV SCH ×2 (07:00→09:42)
[2016-11-02] MEDS: INVANZ 1 GM in SODIUM CHLORIDE 100 ML IV SCH (09:42)
--- NOTE | 2016-11-02 14:37 | HP ---
CHIEF COMPLAINT: Pain on urination, fever, chills, headache and body aches. SOURCE OF HISTORY: Patient, triage notes were also reviewed, as well as the emergency room physician. HISTORY OF PRESENT ILLNESS: The patient is alert and oriented and cooperative. She answered questions well. The patient began experiencing painful urination about nine days prior to presentation to the emergency room. The problem had improved until Tuesday, two days ago, when she then again experienced burning on urination with chills and fever and body aches with cough. She also had a headache with low back pain. The patient's appetite has decreased remarkably. She presented to the emergency room today because of the persistent problems. The patient, at the emergency room, was recorded to have a temperature of 102, pulse rate of 138, respiratory rate of 20, oxygen saturation 97 at room air. Blood pressure 98/66. Pain in the back rated at 7 on a scale of 1-10. The patient had Tylenol at 7 a.m. The patient's work up in the emergency room were rapid strep negative, CBC with moderate leukocytosis at 19,860, neutrophils 17.8 , immature 0.1, normal. Electrolytes showed slightly lower potassium at 3.2, CO2 normal, BUN 12, creatinine 0.80. E GFR 81. Glucose 103, lactic acid 9.9. AST and ALT normal. Alkaline phosphatase slightly elevated. CK and Troponin normal. Procalcitonin 1.65, serum negative. Urinalysis with specific gravity 1.020, 3+ protein, negative for sugar, ketones trace, blood 2+ , nitrite positive, leukocyte esterase 1+, urine WBC note was made full field WBC unable to complete microscopic due to limited view and I am not certain as to what it means. There is 2+ blood, yet there is no RBC. The screen was done after she left the emergency room and she received Morphine. Drug screen is positive for opiates, positive for amphetamine. Influenza A and B negative. CT scan of the abdomen and pelvis without contrast with impression enteritis and hepatomegaly. No renal stones or hydronephrosis or mention of ureteral stones or ureteral dilatation. The patient was then admitted with a diagnosis of urinary tract infection and probable bacteremia. The patient, after leaving the emergency room on the way to the floor, experienced sharp, severe pain in the anterior chest with no particular radiation to the back. She still had pain when she was transferred to the bed from the emergency room cart. The pain has resolved completely, maybe after five minutes or there about. She never had this pain before. PAST PERSONAL HISTORY: The patient had laparoscopic cholecystectomy a few years ago. She denies any other medical problems. FAMILY HISTORY: Paternal side negative for diabetes, cardiac disease or strokes. No malignancy in the father's side. Maternal side there are relatives that had cancer, as well as diabetes. SOCIAL HISTORY: The patient is and is self employed. She smokes about a pack of cigarettes a day. Occasional alcoholic beverages. Denies any drug abuse. MEDICATIONS: Prior to this admission. The patient is not taking any medications. ALLERGIES: No known drug allergies. REVIEW OF SYSTEMS: CONSTITUTIONAL: The patient has fever and chills, plus fatigue. She also has anorexia. SALES REPRESENTATIVES: Complains of headaches, no confusion. She is alert and oriented times four. VISUAL: Denies any double vision, blurred vision or transient loss of vision. AUDITORY: Hearing is good. Denies any tinnitus, pain or drainage in either ear. RESPIRATORY: Denies any significant cough. Denies any history of hemoptysis. CARDIOVASCULAR: The patient had some very sharp pain lower to midsternal with no diaphoresis lasting about five minutes or so. No radiation to the back and no posterior chest pain. The patient never had this pain previously. GASTROINTESTINAL: The patient has some nausea, plus anorexia. She denies any significant abdominal pain. GENITOURINARY: The patient has burning on urination, maybe questionable frequency. MUSCULOSKELETAL: The patient has muscular body aches, more or less all over. INTEGUMENT: Denies any rash or pruritus. ENDOCRINE: No polyuria or polydipsia. No history of diabetes. HEMATOLOGIC: No history of prolonged bleeding or easy bruising. PSYCHIATRIC: Affect is adequate. The patient is cooperative. PHYSICAL EXAMINATION: GENERAL: We have a 35 year old female admitted to the hospital because of fever and chills with dysuria. VITAL SIGNS: At the floor, temperature 103, pulse 122, blood pressure 106/64, respiratory rate 16, oxygen saturation not measured, but was 97 in the emergency room. She is 5'6", 108 pounds on the scale on the floor. BMI 17.4. HEAD: Unremarkable. FACE: Symmetrical and equal with no facial weakness. No significant tenderness in the frontal or maxillary sinus areas to palpation under pressure. EYES: Pupils equal/reactive to light about 3 mm in size. Conjunctivae not pale. Sclerae not icteric. MOUTH: Unremarkable. THROAT: No inflammation, no tumors. NECK: No masses. No bruit. No tenderness. CHEST: Essentially symmetrical and equal with good expansion with no remarkable tenderness including the sternum. LUNGS: Breath sounds are heard in both sides, diminished, but no rales or wheezing. HEART: Audible and regular with good tones and tachycardic. No murmurs. ABDOMEN: Flat, soft with no remarkable tenderness. Bowel sounds are present and active. LOWER EXTREMITIES: Symmetrical and equal with pedal pulses present. No significant edema and no tenderness in the calf muscles. UPPER EXTREMITIES: Symmetrical and equal. ASSESSMENT: 1. URINARY TRACT INFECTION WITH PROBABLE BACTEREMIA 2. SHARP ANTERIOR CHEST PAIN, RULE OUT AORTIC DISSECTION 3. CHRONIC TOBACCO USE AND ABUSE, PERSISTENT 4. PREVIOUS LAPAROSCOPIC CHOLECYSTECTOMY The patient was examined with Fabián Lopes with me. I had advised them about the CT scan of the chest with contrast IV medium to rule out dissecting aneurysm. I did tell them that the chance is small, but however if it is present that it would need an immediate action and treatment that is necessary. There is always a possibility of reaction to the medication, the IV contrast dye. She, however, never had any allergies or any reaction to any medications as recorded on entry. This patient also was given Rocephin in the emergency room, but I did change this to Ertapenem. If this patient has an e.coli that the chances for Ertapenem to be working better is greater than Rocephin. If it happens to be e.coli and ESBL positive then Ertapenem would be the best choice for now. FRITZ
--- NOTE | 2016-11-02 14:43 | PN ---
DATE OF VISIT: 10/29/16 SUBJECTIVE: The CTA chest showed no aortic dissection or aneurysm. No pulmonary emboli. Mild to moderate emphysematous changes and no acute findings in the chest. Urine sample was sent for quantitative determination of the drugs that were positive. I am trying to determine as to when the morphine was given. It appears that it was given at 1:45 to 1:50 pm. Unfortunately on my screen there is no time as to when the drug screen was done. I don't know if this was the urine from the emergency room prior to the administration of Morphine. I would need to confirm that with the lab. The urine that was tested for drug screen came from the floor so the patient already received the Morphine and that might have accounted for the positive opiates. This patient is advised about the negative findings in the chest CT. MTDD
--- NOTE | 2016-11-02 14:49 | PN ---
DATE OF VISIT: 10/30/16 The patient is alert, but not dyspneic, nor tachypneic. VITAL SIGNS: The temperature at 2 p.m. is 100.3, the last spike of temperature was at 2200 on 10/29/16 at 103. I did tell her in the presence of her father that she does have bacteria in her blood. The same bacteria that we could isolate from the urine. We do not have a complete identification of the bacteria. I do believe that the medication that she is given now is probably appropriate for the bacteria, but that will not be confirmed until after we have the bacteria, plus sensitivity. Her blood pressure still is low and I don' t have any idea what her blood pressure was before. The lowest recording was yesterday at 6 p.m. with a blood pressure of 90/60, respiratory rate 16, pulse 104, temperature 98.7. HEART: Normal sinus rhythm today. ABDOMEN: Soft with some tenderness. Bowel sounds are active. LUNGS: Clear to auscultation in both sides. The patient did not have any recurrence of the pain in the anterior chest. CONDITION: Stable. The patient has a gram negative marcelo bacteremia. We are waiting with the ID and MIKEY. She will be continued on the Ertapenem. MTDD
--- NOTE | 2016-11-02 14:53 | PN ---
DATE OF VISIT: 10/31/16 SUBJECTIVE: The patient did spike a fever at 6:00 last night at 102.9 and was normal at 10: 00 at 97.6 again did spike to 100.3 at 2:00 10/31/16. Temperature at 4:33am 01/12 98.1 and temperature at 10:00 10/31/16 was 103.5 and 11:22 was 101.4 and 12 :25 is 98.3 and 1:58 98.2. The pulse was 83 with a temperature of 98.2, blood pressure 98/60 and respiratory rate 20 and oxygen saturation 95% on room air. The patient at the time of my examination this afternoon was alert and responsive, no dyspneic or tachypneic. HEART: Normal sinus rhythm. Not tachycardiac ABDOMEN: Soft with no localized tenderness and muscular guarding. Bowel sounds are active. LUNGS: Breath sounds are diminished with no obvious rales. This patient is a smoker. LABS: The CBC today showed a decline in WBC 15,340 from high 26,560 on the second day of hospitalization. There are no bands today. The Neutrophil is down to 12.4. CONDITION: Stable If this patient would spike another fever then Levaquin 750mg will be added to the regimen or Tobramycin. The e-coli is both sensitive to this medications. It is sensitive to Ertapenem as she is now receiving. The legs has no tenderness in the calf muscles to palpation. Pedal pulses present. The nurse told me that the patient was addicted to Lortab previously however the patient denied that when I asked her. The family is present so I did not ask her about his question. I had asked her on admission with the family presents. FRITZ
--- NOTE | 2016-11-02 15:03 | PN ---
DATE OF VISIT: 10/31/16 at 7:45 p.m. The patient was complaining of abdominal pain and still persisting. She had not vomited nor did she have any diarrhea, but the abdominal pain is persistent. When I examined her this evening, the abdomen is somewhat distended and tender, more than before, but the bowel sounds remained active. There are no metallic sounds. She was given Dilaudid 1 mg. The patient's temperature at that time was 99.6 according to the nurse. Breath sounds again are still diminished, but no obvious rales. No wheezing. The oxygen saturation recorded at room air was 85 to 86. I did order blood gases to make some certainty that indeed it is low. The arterial blood gases is abnormal, but the oxygen saturation is 94, pH 7.449, PCO2 27.3, PO2 65, HCO3 18.9, total carbonate 20, base excess -5. The patient at 6:23 p.m. spiked a temperature of 104.2 with a pulse of 129, blood pressure 124/79, respiratory rate 18, oxygen saturation 94 with [address] scan of the abdomen and pelvis showed bibasilar reticular nodular opacities, right more than left side compatible with bronchiolitis and small pleural effusion on the right with atelectasis or pneumonia. There was not that finding on the CTA 10/29/2016. Because of these changes and the patient looks stable at this time, that I would like to transfer her to a facility where a consultation can be afforded if needed. She is receiving Ertapenem now 1 gram IV daily and the e.coli is negative for ESBL and sensitive to Ertapenem. She initially had Rocephin at the emergency room and was changed to Ertapenem prior to the results of the culture. The culture indicates that it is indeed sensitive to Ertapenem, as well as Rocephin. This patient is continued on Ertapenem at this time. I did talk to the patient and the sister about the possible transfer. I did inform them that I would talk to the transfer center at [facility], [place] and see what happens. FRITZ
--- NOTE | 2016-11-02 15:13 | PN ---
DATE OF VISIT: 10/31/16 AT 8:35 P.M. I did talk to the Transfer Center at [facility] with Bijal and also with Dr. Mary Ortiz. I did explain to her about the patient's problems. I mentioned that she has e.coli bacteremia and the also was e.coli. She is still having a fever and did spike a temperature of 104.2 at 6 o'clock today. Her oxygen saturation is decreasing and the arterial blood gases showed a PO2 of 65 with a PCO2 of 27. Oxygen saturation at [address] of the abdomen does indicate some reticular nodulation on the lung, right more than left side, which was not present two days ago. She also had abdominal pain and the patient has enteritis according to the radiologist and still the same findings for today. The abdomen is tender and the bowel sounds are active and no metallic sounds. I was exploring the idea of transferring this patient since the patient's pulmonary status seems to have deteriorated slightly with the formation of the reticular nodulation, bronchiolitis and the hypoxemia. The abdominal pain is also persistent. She told me that she would talk to Bijal and Bijal will get back to me as to her decision as to whether she will take the patient tonight. She told me that she would not do anything than what I do. I mentioned again to her that I do not have any way of consulting somebody if and when her pulmonary function would deteriorate further. I will be waiting for Bijal to call me back as to their decision. FRITZ
--- NOTE | 2016-11-02 15:22 | PN ---
DATE OF VISIT: 10/31/16 AT 9:05 P.M. I did talk to the patient and her mother in the room, 116, with Sabrina Cunningham R.N. I told the patient, as well as the mother, that Dr. Mary Ortiz told me that she is not going to do anything different, as far as treatment is concerned , but if they wanted to go to [facility] and be admitted there tonight that she would accept her as a patient. I told them about the bacteria that is in her blood and decreasing oxygen and the findings on the chest by CT and the abdomen and pelvis indicating bronchiolitis and the abdominal pain. I told the patient and her mother that I just do not have the specialities that I would need to consult if the problem would deteriorate. I already had consulted Dr. Merchant for the heart problem. This was done because of the chest pain. The patient clearly stated that she would just stay here and the mother had agreed to that in the presence of Sabrina Cunningham. I told Hermila Octavio to document that also. This patient will be given Gentamicin 60 mg IV piggyback every 8 hours and see if this would improve the responses. MTDD
--- NOTE | 2016-11-02 15:36 | PN ---
DATE OF VISIT: 11/01/16 The patient was examined about 12:40 p.m. The patient is alert and oriented times four. Not dyspneic, nor tachypneic and was resting. Her mother was in the room. She was desiring to eat. I told her that we are not going to give her very much except tea and Jello for now. LUNGS: Her lungs are still clear to auscultation in both sides and no wheezing. HEART: Audible and regular with good tones. Not tachycardic. ABDOMEN: Slightly protuberant with some tenderness, but no significant muscular guarding and no localized tenderness. There are no masses palpable. Bowel sounds are active and no bruit. I proceeded to do a pelvic examination. This patient claimed to have had menorrhagic for about two years. Her present cycle began about two weeks ago and still has continued bleeding. The CT scan of the abdomen and pelvis times two does not mention any pelvic abnormalities or masses. CBC now has returned to normal with WBC 7,790, hemoglobin is down further now at 10 grams, hematocrit 28.2. Potassium is rising from 3.1 to 3.3 today. The E GFR 99. Serum calcium slightly higher than yesterday at 7.9. Total protein is still very low at 4.9, albumin 1.7. The patient was seen in consultation by a policy loan calculator because of the sharp anterior chest pain lasting about 5-10 minutes. CTA was negative for any dissection or aneurysm. Echocardiogram with normal left ventricular contractility. Stress with no evidence of ischemia by ST-T wave changes. Poor exercise because of the patient's illness most likely. Echocardiogram normal, except slightly lower left ventricular ejection fraction of 54%. The patient, at the time of my examination, had a normal temperature. The patient is still menstruating and will probably consider discontinuing Lovenox for now. MTDD
[2016-11-03] MEDS: D5%-NS-KCL 20 MEQ/L IV SOL 1,000 ML IV SCH ×3 (01:34→16:16)
[2016-11-03 04:35] LABS: BASOPHILS % (AUTO) 0.2 % (0.0-3.0); EOSINOPHILS # (AUTO) 0.2 K/ul (0.0-0.7); EOSINOPHILS % (AUTO) 1.3 % (0.0-7.0); HEMATOCRIT 29.9 % (37.0-47.0); HEMOGLOBIN 10.8 g/dl (12.0-16.0); IMMATURE GRANULOCYTE % (AUTO) 0.5 % (0.0-5.0); LYMPHOCYTES # (AUTO) 1.8 K/uL (0.60-3.4); LYMPHOCYTES % (AUTO) 15.4 (10.0-50.0); MEAN CORPUSCULAR HEMOGLOBIN 32.2 pg (27.0-31.0); MEAN CORPUSCULAR HGB CONC 36.1 (31.8-35.4); MEAN CORPUSCULAR VOLUME 89.3 fl (81.0-99.0); MONOCYTES # (AUTO) 1.2 K/uL (0.4-2.0); MONOCYTES % (AUTO) 10.1 (0-10); NEUTROPHILS # (AUTO) 8.6 K/ul (2.0-6.9); NEUTROPHILS % (AUTO) 72.5; PLATELET COUNT 220 10^3/uL (140-440); RED BLOOD COUNT 3.35 10^6/ul (4.20-5.40)
[2016-11-03 04:57] LABS: ALBUMIN 2.1 g/dL (3.4-5.0); ALBUMIN/GLOBULIN RATIO 0.6; ANION GAP 11.2; BILIRUBIN,TOTAL 0.39 mg/dL (0.00-1.20); BUN/CREATININE RATIO 9.72; CALCIUM 8.4 mg/dL (8.2-10.2); CREATININE 0.72 mg/dL (0.60-1.30); POTASSIUM 3.2 mmol/L (3.5-5.10); TOTAL PROTEIN 5.6 g/dL (6.4-8.2)
[2016-11-03] MEDS: INVANZ 1 GM in SODIUM CHLORIDE 100 ML IV SCH (09:00)
--- NOTE | 2016-11-03 09:05 | PN ---
The patient seen on consultation 10/30/16: 10/30/16: Level 5 10/31/16: Intermediate 11/01/16: Intermediate Consultation for hospitalist. FRITZ
--- NOTE | 2016-11-03 14:03 | PN ---
DATE OF VISIT: 11/02/16 The patient is alert and cheerful this evening. She did eat her regular meal without any nausea or any abdominal pain. She claims that the abdominal pain has resolved. The patient had been afebrile since dental services director until now at 6 p.m. I did see her at 8:45 p.m.. The CBC now is normal and had been normal since yesterday and the Procalcitonin has returned to normal. VITAL SIGNS: At 6 p.m. were temperature 98.1, pulse 101, blood pressure 100/67 , respiratory rate 14, oxygen saturation at room air 93. It was 97 previously. ABDOMEN: Still slightly protuberant, but no remarkable tenderness and no longer has pain. The Procalcitonin on 10/29/16 was 1.65, on 10/31/16 was 2.61 indicating sepsis, probable and on 11/02/16 it is 0.64. The patient is still receiving Gentamicin , as well as Ertapenem. One of these medications will be discontinued tomorrow , tonight the Gentamicin. I reviewed her sensitivity and the patient is sensitive to Cipro, as well as Keflex, Penicillin, Amoxicillin, plus Clavulanate. TIKAD
[2016-11-03] MEDS ORDERED: LEVAQUIN PO STA (19:07)
[2016-11-04] MEDS: D5%-NS-KCL 20 MEQ/L IV SOL 1,000 ML IV SCH ×3 (04:49→10:21)
[2016-11-04 05:42] VITALS: BP 100/65; TEMP 97.8
[2016-11-04 06:05] LABS: BASOPHILS % (AUTO) 0.1 % (0.0-3.0); EOSINOPHILS # (AUTO) 0.1 K/ul (0.0-0.7); EOSINOPHILS % (AUTO) 1.1 % (0.0-7.0); HEMATOCRIT 30.9 % (37.0-47.0); IMMATURE GRANULOCYTE % (AUTO) 0.8 % (0.0-5.0); LYMPHOCYTES # (AUTO) 1.7 K/uL (0.60-3.4); MEAN CORPUSCULAR HGB CONC 35.6 (31.8-35.4); MEAN CORPUSCULAR VOLUME 89.8 fl (81.0-99.0); MONOCYTES # (AUTO) 0.9 K/uL (0.4-2.0); MONOCYTES % (AUTO) 8.3 (0-10); NEUTROPHILS # (AUTO) 7.4 K/ul (2.0-6.9); NEUTROPHILS % (AUTO) 72.7; PLATELET COUNT 313 10^3/uL (140-440); RED BLOOD COUNT 3.44 10^6/ul (4.20-5.40); WHITE BLOOD COUNT 10.19 K/ul (4.6-10.2)
[2016-11-04 06:27] LABS: ALBUMIN 2.3 g/dL (3.4-5.0); ALBUMIN/GLOBULIN RATIO 0.64; ANION GAP 11.5; BILIRUBIN,TOTAL 0.34 mg/dL (0.00-1.20); BUN/CREATININE RATIO 13.04; CALCIUM 8.8 mg/dL (8.2-10.2); CREATININE 0.69 mg/dL (0.60-1.30); POTASSIUM 3.5 mmol/L (3.5-5.10); TOTAL PROTEIN 5.9 g/dL (6.4-8.2)
--- NOTE | 2016-11-04 07:51 | PN ---
DATE OF VISIT: 11/03/16 The patient is alert and feeling better. Appetite is good. VITAL SIGNS: At 5:56 p.m. today shows a temperature of 97 oral, pulse 81, blood pressure 107/72, respiratory rate 18, oxygen saturation 99 at room air. GENERAL APPEARANCE: Good. No dyspnea, nor tachypnea and no cyanosis. LUNGS: Clear to auscultation in both sides. HEART: Audible and regular with good tones. ABDOMEN: No significant tenderness. Bowel sounds are active. The patient is given a dose of Levaquin tonight and see if she tolerates the medication. This will be the medication that will be used when she is discharged tomorrow. She will be afebrile for 48 hours, if she remains afebrile by tomorrow. Levaquin will be given at a dose of 500 mg twice a day as an outpatient. [facility]
[2016-11-04] MEDS: INVANZ 1 GM in SODIUM CHLORIDE 100 ML IV SCH (09:21)
--- NOTE | 2016-11-05 13:56 | DS ---
PATIENT IDENTIFICATION: 35 year old female who came to the emergency room because of pain in the abdomen and lower back, fever and chills with headache and body aches. The patient began to experience some dysuria nine days prior to presentation to the emergency room and had worsened about two days prior to presentation with the fever and chills. Vital signs in the ER showed a temperature 102, pulse rate 138, respiratory rate 20, oxygen saturation 97 on room air, blood pressure 98/66. HOSPITAL COURSE: The patient appears ill. Not cyanotic or dyspneic. LUNGS: Clear. HEART: Normal sinus rhythm, but tachycardic. ABDOMEN: Slightly protuberant with some tenderness, but not localized. Bowel sounds were active. The patient's CBC showed initial WBC of 19,860 and did rise to 26,560 on the second hospital day and from then on gradually decreased towards normal. It did return to normal of 11/01/2016 at 7,790. Hemoglobin initially was 14.3, but that has decreased down to 10. The patient at one time had bands of 7 on . Arterial blood gases showed a PO2 of 65, PCO2 27.3, pH 7.449, oxygen saturation 94 in ER. The ABG done at room air. Chemistries showed mild hypokalemia initially at 3.2 and that has returned to normal on discharge at 3.5. The alkaline phosphatase was elevated at 112 and up to 125 and back down to normal at 76 on discharge. I am not certain as to the reason. The lactic acid was 9.9, normal. Procalcitonin 1.65 and did rise to 2.61 and down to 0.64 on 11/02/16 and to 0.12 on 11/04/16. Initial urinalysis showed 2+ blood, 3+ protein, too numerous white cells, 1+ leukocyte esterase, positive nitrite. Repeat urinalysis on 10/31/16 showed 2+ blood and this patient was on her menstrual cycle. Nitrite now negative, leukocyte esterase now trace, RBC 10-20 , WBC 5-10 from too numerous to count previously. The patient's cultures of urine showed e.coli, ESBL negative. Blood also showed e.coli on four vials, ESBL negative. The e.coli is sensitive to Ampicillin, Amoxicillin, Sulbactam, Cefazolin, Cefepime, Ceftriaxone, Ciprofloxacin, Ertapenem, Gentamicin, Imipenem , Levofloxacin, Tobramycin, Bactrim and Zosyn. This patient was initially given Rocephin in the emergency room, but was discontinued after the first dose and replaced with Ertapenem 1 gram daily. The patient continued to spike a temperature as high as 103.4. The last fever recorded was on 11/01/2016 at 22:00 at 101.8. The patient's oxygen saturation also had decreased. A CT scan of the abdomen and pelvis was done because of the abdominal pain and noted a new small right pleural effusion with adjacent atelectasis or pneumonia. Right greater than left bibasilar reticular nodular opacities compatible with bronchiolitis done 10/31/2016. Attempt to transfer to another facility was done,however receiving facility MD doesn't feel that they can add anything to what we had been doing. I told her that my only concern that maybe this patient is developing some pulmonary complications such as an early ERDS. At the end of that conversation, the receiving doctor mentioned that if the patient wants to come that she would accept her if not the patient could just stay in our facility. I did bring this to the patient and the patient elected to stay, knowing that there is some slight downhill progression for her problems. The patient, however, continued to remain stable and Gentamicin was added to the regimen at 60 mg IV every 8 hours. The patient from [facility] of 11/02/16 at 12:01 was afebrile and remained afebrile until discharge. Vital signs on discharge showed a temperature 97.8, pulse 74, blood pressure 100 /65, respiratory rate 16, oxygen saturation 95 at room air. The patient is a smoker and was advised not to resume the habit. LUNGS: Clear to auscultation. HEART: Audible and regular with good tones. ABDOMEN: Soft and nontender. This patient has a significant lumbar disc disease seen on CT scan of the abdomen and pelvis. The appetite has improved and the patient had been consuming anywhere between 75 to 100% of her meals. She denied any dysuria or any frequency and the abdominal pain has resolved. PLAN: The patient on discharge is instructed to see her provider next week and is also further instructed to return to the emergency room if she were to have recurrence of the problems. She is prescribed Levaquin 750 mg tablet #5 to be taken one daily beginning tomorrow. She is further instructed to stop the medication if she develops any diarrhea. I mentioned to her that patient's can develop clostridium colitis from the antibiotics. She does not have any problems at this time with regards to diarrhea. FINAL DIAGNOSES: 1. E.COLI BACTEREMIA 2. URINARY TRACT INFECTION SECONDARY TO E.COLI 3. CHRONIC TOBACCO USE AND ABUSE, PERSISTENT 4. CHRONIC LUMBAR PAIN-DISC DISEASE L5-S1 5. ANTERIOR CHEST PAIN, SHARP. NEGATIVE CTA. 6. HEPATOSPLENOMEGALY BY CT, ETIOLOGY UNDETERMINED Note: Influenza A and B rapid screen was negative and the Influenza A and B antibody titers quantitative is pending. [facility]
== END 2016-11-04 10:30 | disposition home or self-care (01) | DRG 871 ==
LOC: ED 11:55 → MEDSURG B 14:06
PROVIDERS: ADMIT General Practice; ATTEND General Practice
DX: R78.81 Bacteremia (principal); N39.0 Urinary tract infection, site not specified; J18.9 Pneumonia, unspecified organism; J90 Pleural effusion, not elsewhere classified; J98.11 Atelectasis; R07.89 Other chest pain; R30.0 Dysuria; R10.9 Unspecified abdominal pain; R63.0 Anorexia; R50.9 Fever, unspecified; R74.8 Abnormal levels of other serum enzymes; R16.2 Hepatomegaly with splenomegaly, not elsewhere classified; B96.20 Unspecified Escherichia coli [E. coli] as the cause of diseases classified elsewhere; F17.210 Nicotine dependence, cigarettes, uncomplicated
CPT/HCPCS: 36415; 80053; 80306; 80307; 81001; 82150; 82550; 82803; 83605; 83690; 83880; 84145; 84484; 84703; 85007; 85025; 85379; 86710; 87040; 87070; 87086; 87186; 87651; 87804; 87880; 93005; 93010; 96361; 96365; 96375; 99223; 99232; 99233; 99239; 99284

== ENCOUNTER 2017-04-13 13:58 | Emergency (ER) ==
[2017-04-13 14:02] VITALS: BP 91/60; TEMP 100.3; BMI 17.7
[2017-04-13 14:38] LABS: ANISOCYTOSIS NOT PRESENT (NOT PRESENT)
[2017-04-13 14:40] LABS: HEMATOCRIT 35.9 % (37.0-47.0); MEAN CORPUSCULAR HEMOGLOBIN 31.6 pg (27.0-31.0); MEAN CORPUSCULAR HGB CONC 36.2 (31.8-35.4); MEAN CORPUSCULAR VOLUME 87.3 fl (81.0-99.0); PLATELET COUNT 367 10^3/uL (140-440); RED BLOOD COUNT 4.11 10^6/ul (4.20-5.40); WHITE BLOOD COUNT 17.02 K/ul (4.6-10.2)
[2017-04-13 14:53] LABS: BILIRUBIN,URINE 1+ (NEGATIVE); KETONES,URINE Trace (NEGATIVE); LEUKOCYTE ESTERASE ,URINE 1+ (NEGATIVE); NITRITE,URINE Positive (NEGATIVE); PROTEIN,URINE 1+ (NEGATIVE); URINE, BLOOD 1+ (NEGATIVE)
[2017-04-13 14:54] LABS: URINE PREGNANCY INTERNAL QC INTERNAL QC VALID
[2017-04-13 15:02] LABS: ADD URINE MICROSCOPIC YES
[2017-04-13 15:06] LABS: BACTERIA,URINE 1+ (NOT PRESENT)
[2017-04-13 15:06] LABS: ALBUMIN 3.4 g/dL (3.4-5.0); ALBUMIN/GLOBULIN RATIO 0.81; ANION GAP 13.2; BILIRUBIN,TOTAL 0.59 mg/dL (0.00-1.20); BUN/CREATININE RATIO 12.5; CALCIUM 9.2 mg/dL (8.2-10.2); CREATININE 0.72 mg/dL (0.60-1.30); POTASSIUM 3.2 mmol/L (3.5-5.10); TOTAL PROTEIN 7.6 g/dL (6.4-8.2)
--- NOTE | 2017-04-13 16:07 | CT ---
Exam: The CT of the abdomen pelvis without intravenous contrast. Comparison: 10/31/2016. Reason for exam: Fever with abdominal pain. FINDINGS: The examination is limited secondary to the lack of intravenous contrast administration. No pleural effusion, or focal consolidation in the partially imaged lung bases. The liver is prominent in size. The gallbladder has been removed. The spleen appears prominent in s ize. The adrenal glands and pancreas are not well imaged secondary to the lack of intravenous contr ast administration. No focal bowel dilatation or transition point. There are multiple fluid-filled loops of small bowel seen throughout the abdomen. No intra-abdominal free air. No suspicious appearing osteoblastic or osteolytic lesions. Degenerative disease is seen in the lumbosacral spine, specifically at L5-S1. Impression: 1. Multiple fluid-filled loops of small bowel and not significantly changed from the previous exam, may represent enteritis. Image interpretation is limited by the lack of intravenous contrast admin istration. If clinical concern exists, repeat imaging with intravenous contrast may be performed. 2. Hepatosplenomegaly. 3. Degenerative disease at L5-S1. Report faxed at 1600 hours on 04/13/2017
[2017-04-13] MEDS ORDERED: ROCEPHIN IM STA (16:15)
[2017-04-13] MEDS ORDERED: LIDOCAINE 1 % AMP 5 ML (SUTURES) IM STA (16:15)
--- NOTE | 2017-04-13 16:18 | ED.PDOC ---
General ED Provider: Dr. MARIBEL ZHOU-ER Chief Complaint: Fever Stated Complaint: i think i hve another uti--it hurts to pee and i am running fever --denies nausea or vomiting Time Seen by Physician: 13:55 Mode of Arrival: Walk-In Information Source: Patient Exam Limitations: No limitations Primary Care Provider: SHARAD GREGORIO Nursing and Triage Documentation Reviewed and Agree: Yes Complaint Exam - UTI Female Complaint/Exam Patient Complains of: Reports: Painful urination Onset/Duration: 2 days Symptoms Are: Still present Timing: Constant Initial Severity: Mild Current Severity: Mild Location of Pain: Reports: Suprapubic Associated Signs and Symptoms: Reports: Fever, Chills. Denies: Flank pain, Dyspareunia, Vaginal discharge Patient Rh Status: Unknown CVA Tenderness: No Suprapubic Tenderness: Yes Differential Diagnoses: Cystitis Review of Systems - Review Of Systems Constitutional: Reports: Chills, Fever, Weakness Eyes: Reports: No symptoms Ears, Nose, Mouth, Throat: Reports: No symptoms Respiratory: Reports: No symptoms Cardiac: Reports: No symptoms GI: Reports: Abdominal pain, Nausea : Reports: Burning, Dysuria Musculoskeletal: Reports: No symptoms Skin: Reports: No symptoms Neurological: Reports: No symptoms Endocrine: Reports: No symptoms Hematologic/Lymphatic: Reports: No symptoms All Other Systems: Reviewed and Negative Past Medical History - Past Medical History Previously Healthy: Yes Endocrine: Reports: None Cardiovascular: Reports: None Respiratory: Reports: None Hematological: Reports: None Gastrointestinal: Reports: None Genitourinary: Reports: None Neuro/Psych: Reports: None Musculoskeletal: Reports: None Cancer: Reports: None Last Menstrual Period: 1 week - Surgical History General Surgical History: Reports: None - Family History Family History: Reports: None - Social History Smoking Status: Current every day smoker Hx Substance Use: No Alcohol Screening: Occasionally Lives: With family Physical Exam - Physical Exam Appearance: Well-appearing, No pain distress, Well-nourished Eyes: CHRIS, EOMI, Conjunctiva clear ENT: Ears normal, Nose normal, Oropharynx normal Neck: Supple Respiratory: Airway patent, Breath sounds clear, Breath sounds equal, Respirations nonlabored Cardiovascular: RRR, Pulses normal, No rub, No murmur GI/: Soft, Nontender, No masses, Bowel sounds normal, No Organomegaly Musculoskeletal: Normal strength, ROM intact, No edema, No calf tenderness Skin: Warm, Dry, Normal color Neurological: Sensation intact, Motor intact, Reflexes intact, Cranial nerves intact, Alert, Oriented Psychiatric: Affect appropriate, Mood appropriate Interpretation - Radiology Interpretation Radiology Interpretation By: Radiologist Radiology Results: Negative Exam Interpreted: CT Scan Critical Care Note - Critical Care Note Total Time (mins): 0 Course - Course Hematology/Chemistry: 04/13/17 14:25 04/13/17 14:25 Orders, Labs, Meds: Lab Review 04/13/17 04/13/17 14:20 14:25 WBC 17.02 H RBC 4.11 L Hgb 13.0 Hct 35.9 L MCV 87.3 MCH 31.6 H MCHC 36.2 H RDW Coeff of Axel 12.3 Plt Count 367 Neutrophils % (Manual) 81.0 H Band Neutrophils % 6.0 H Lymphocytes % (Manual) 10.0 Monocytes % (Manual) 2.0 Eosinophils % (Manual) 1.0 Anisocytosis Not present Sodium 134 L Potassium 3.2 L Chloride 98 Carbon Dioxide 26 Anion Gap 13.2 BUN 9 Creatinine 0.72 Estimated GFR (MDRD) 91.00 BUN/Creatinine Ratio 12.50 Glucose 94 Lactic Acid 6.2 Calcium 9.2 Total Bilirubin 0.59 AST 13 L ALT 17 Alkaline Phosphatase 94 Total Protein 7.6 Albumin 3.4 Globulin 4.2 Albumin/Globulin Ratio 0.81 Amylase 43 Lipase 14 Procalcitonin < 0.05 Urine Color Yellow Urine Clarity Cloudy Urine pH 6.0 Ur Specific [place] 1.020 Urine Protein 1+ Urine Glucose (UA) Negative Urine Ketones Trace Urine Blood 1+ Urine Nitrite Positive Urine Bilirubin 1+ Urine Urobilinogen 1.0 Ur Leukocyte Esterase 1+ Urine Microscopic RBC 20-30 Urine Microscopic WBC 20-30 Ur Squamous Epith Cells 5-10 Urine Bacteria 1+ Urine Test Negative Orders Category Date Time Status AMYLASE Stat LAB 04/13/17 14:25 Completed BLOOD CULTURE Stat LAB 04/13/17 14:25 Received CBC WITH MANUAL DIFF Stat LAB 04/13/17 14:25 Completed COMPREHENSIVE METABOLIC PANEL Stat LAB 04/13/17 14:25 Completed LACTIC ACID Stat LAB 04/13/17 14:25 Completed LIPASE Stat LAB 04/13/17 14:25 Completed PROCALCITONIN Stat LAB 04/13/17 14:25 Completed URINALYSIS C & S IF INDICATED Stat LAB 04/13/17 14:20 Completed URINE CULTURE Stat LAB 04/13/17 14:20 Received URINE Stat LAB 04/13/17 14:20 Completed Ceftriaxone Sodium [Rocephin] MEDS 04/13/17 16:15 Discontinued 1 gm IM ONCE STA Lidocaine HCl/Pf [Lidocaine 1 % Amp 5 ml (Sutures)] MEDS 04/13/17 16:15 Discontinued 2.1 ml IM ONCE STA CT ABDOMEN/PELVIS WO CONTRAST Stat RADS 04/13/17 14:09 Completed Medications Discontinued Medications Generic Name Dose Route Start Last Admin Trade Name Asad PRN Reason Stop Dose Admin Ceftriaxone Sodium 1 gm 04/13/17 16:15 Rocephin IM 04/13/17 16:16 ONCE STA Lidocaine HCl 2.1 ml 04/13/17 16:15 Lidocaine 1 % Amp 5 Ml (Sutures) IM 04/13/17 16:16 ONCE STA i felt she needed admission but she refuses Vital Signs: Temp Pulse Resp BP Pulse Ox 04/13/17 13:58 100.3 F H 129 H 20 91/60 95 Departure - Departure Time of Disposition: 16:19 Disposition: HOME SELF-CARE Discharge Problem: Urinary tract infectious disease Instructions: Urinary Tract Infection in Women (ED) Condition: Good Pt referred to PMD for follow-up: Yes Additional Instructions: levaquin 500mg q daily#10--fluids--tylenol for temp--recheck with pcp in 48hrs-- return sooner if any temp over 102 or vomiting Allergies/Adverse Reactions: Allergies morphine Adverse Reaction (Verified 04/13/17 14:02) Home Medications: Ambulatory Orders 1 [No Reported Medications] 10/29/16 Disposition Discussed With: Patient
== END 2017-04-13 16:53 | disposition home or self-care (01) ==
LOC: ED 13:58
DX: N39.0 Urinary tract infection, site not specified (principal); F17.210 Nicotine dependence, cigarettes, uncomplicated
CPT/HCPCS: 36415; 80053; 81001; 81025; 82150; 83605; 83690; 84145; 85007; 85027; 87040; 87086; 87186; 96372; 99283

== ENCOUNTER 2017-08-02 15:39 | Outpatient (CLI) | END 2017-08-02 15:40 | disposition short-term general hospital (02) | LOC: AMBL 15:39 | PROVIDERS: ATTEND Emergency Medicine | DX: F32.9 Major depressive disorder, single episode, unspecified (principal); R45.851 Suicidal ideations ==

== ENCOUNTER 2017-12-03 17:45 | Emergency (ER) ==
[2017-12-03 17:52] VITALS: BP 115/79; BMI 18.2
--- NOTE | 2017-12-03 18:08 | ED.PDOC ---
General ED Provider: Dr. MARIBEL FOX Chief Complaint: Abdominal Pain Stated Complaint: pain began around 10am this morning, lower abdominal pain to back and down legs, hurts when she finishes voiding. Denies pelvic pain or vaginal discharge.C/o nausea without emesis Time Seen by Physician: 18:30 Mode of Arrival: Walk-In Information Source: Patient Exam Limitations: No limitations Primary Care Provider: SHARAD GREGORIO Nursing and Triage Documentation Reviewed and Agree: Yes Reviewed sepsis parameters & appropriate labs ordered?: Yes System Inflammatory Response Syndrome: Not Applicable Sepsis Protocol: For patient's 13 years and over: Temp is 96.8 and below OR 101 and greater Pulse >90 BPM Resp >20/minute Acutely Altered Mental Status Are patient's symptoms suggestive of a new infection, such as: -Pneumonia -Skin, Soft Tissue -Endocarditis -UTI -Bone, Joint Infection -Implantable Device -Acute Abdominal Infection -Wound Infection -Meningitis -Blood Stream Catheter Infection -Unknown System Inflammatory Response Syndrome: Not Applicable Complaint Exam - Complaint/Exam Patient Complains of: Reports: Pain, Dysuria Symptoms Are: Still present Timing: Constant Episodes of Voiding Over Last 12 Hours: 5 Initial Severity: Mild Current Severity: Severe Location of Pain: Reports: Diffuse, Suprapubic Character: Reports: Colicky, Burning, Constant pressure Aggravating: Reports: Movement Alleviating: Reports: None Associated Signs and Symptoms: Reports: Back pain, Fever, Increased urine frequency Related History: Reports: Similar episode. Denies: Prior STD Hx, New sexual partner, Bubble bath use Ectopic Risk Factors: Reports: Maternal age >30. Denies: Hx of Salpingitis, Prior ectopic Ovarian Torsion Risk Factors: Reports: None Surgical Obstruction Risk Factors: Reports: None Related Surgical History: Reports: None Abdominal Findings: Present: CVA Tenderness Review of Systems - Review Of Systems Constitutional: Reports: No symptoms Eyes: Reports: No symptoms Ears, Nose, Mouth, Throat: Reports: No symptoms Respiratory: Reports: No symptoms Cardiac: Reports: No symptoms GI: Reports: No symptoms : Reports: Burning, Dysuria, Frequency, Pain, Urgency. Denies: Discharge, Flank pain, Hematuria, Incontinence Musculoskeletal: Reports: No symptoms Skin: Reports: No symptoms Neurological: Reports: No symptoms Endocrine: Reports: No symptoms Hematologic/Lymphatic: Reports: No symptoms All Other Systems: Reviewed and Negative Past Medical History - Past Medical History Previously Healthy: Yes Endocrine: Reports: None Cardiovascular: Reports: None Respiratory: Reports: None Hematological: Reports: None Gastrointestinal: Reports: None Genitourinary: Reports: UTI Neuro/Psych: Reports: None Musculoskeletal: Reports: None Cancer: Reports: None Last Menstrual Period: 2 years - Surgical History General Surgical History: Reports: None - Family History Family History: Reports: None - Social History Smoking Status: Current every day smoker Hx Substance Use: No Alcohol Screening: None - Immunizations Tetanus Shot up to Date: Yes Physical Exam - Physical Exam Appearance: Ill-appearing, Thin Ill-appearing: Moderate Pain Distress: Severe Eyes: CHRIS, EOMI, Conjunctiva clear ENT: Ears normal, Nose normal, Oropharynx normal Respiratory: Airway patent, Breath sounds clear, Breath sounds equal, Respirations nonlabored Cardiovascular: RRR, Pulses normal, No rub, No murmur GI/: Soft, Bowel sounds normal, Tender Musculoskeletal: Normal strength, ROM intact, No edema, No calf tenderness Skin: Warm, Dry, Normal color Neurological: Sensation intact, Motor intact, Reflexes intact, Cranial nerves intact, Alert, Oriented Psychiatric: Affect appropriate, Mood appropriate Interpretation - Radiology Interpretation Radiology Interpretation By: Radiologist Xray Comments: No acute intraabdomial process Critical Care Note - Critical Care Note Total Time (mins): 0 Course - Course Hematology/Chemistry: 12/03/17 18:10 12/03/17 18:10 Orders, Labs, Meds: Lab Review 12/03/17 12/03/17 12/03/17 18:10 18:10 18:10 WBC 8.49 RBC 4.95 Hgb 15.3 Hct 42.6 MCV 86.1 MCH 30.9 MCHC 35.9 H RDW Coeff of Axel 11.9 Plt Count 263 Immature Gran % (Auto) 0.2 Neut % (Auto) 78.9 Lymph % (Auto) 12.1 Arthur % (Auto) 8.0 Eos % (Auto) 0.7 Baso % (Auto) 0.1 Immature Gran # (Auto) 0.0 Neut # (Auto) 6.7 Lymph # (Auto) 1.0 Arthur # (Auto) 0.7 Eos # (Auto) 0.1 Baso # (Auto) 0.0 Sodium 135 L Potassium 3.7 Chloride 99 Carbon Dioxide 22 Anion Gap 17.7 BUN 9 Creatinine 0.76 Estimated GFR (MDRD) 85.00 BUN/Creatinine Ratio 11.84 Glucose 94 Lactic Acid Calcium 9.7 Total Bilirubin 0.6 AST 19 ALT 18 Alkaline Phosphatase 99 H Total Protein 8.0 Albumin 3.8 Globulin 4.2 Albumin/Globulin Ratio 0.90 Procalcitonin < 0.05 Urine Color Urine Clarity Urine pH Ur Specific [place] Urine Protein Urine Glucose (UA) Urine Ketones Urine Blood Urine Nitrite Urine Bilirubin Urine Urobilinogen Ur Leukocyte Esterase Urine Microscopic WBC Ur Squamous Epith Cells Urine Bacteria 12/03/17 12/03/17 18:10 18:10 WBC RBC Hgb Hct MCV MCH MCHC RDW Coeff of Axel Plt Count Immature Gran % (Auto) Neut % (Auto) Lymph % (Auto) Arthur % (Auto) Eos % (Auto) Baso % (Auto) Immature Gran # (Auto) Neut # (Auto) Lymph # (Auto) Arthur # (Auto) Eos # (Auto) Baso # (Auto) Sodium Potassium Chloride Carbon Dioxide Anion Gap BUN Creatinine Estimated GFR (MDRD) BUN/Creatinine Ratio Glucose Lactic Acid 15.0 Calcium Total Bilirubin AST ALT Alkaline Phosphatase Total Protein Albumin Globulin Albumin/Globulin Ratio Procalcitonin Urine Color Yellow Urine Clarity Clear Urine pH 7.5 Ur Specific [place] 1.020 Urine Protein Negative Urine Glucose (UA) Negative Urine Ketones Negative Urine Blood Negative Urine Nitrite Negative Urine Bilirubin Negative Urine Urobilinogen 1.0 Ur Leukocyte Esterase Trace Urine Microscopic WBC 5-10 Ur Squamous Epith Cells 2-5 Urine Bacteria 1+ Orders Category Date Time Status NPO REMINDER: IMAGING ONCE CARE 12/03/17 18:28 Active IV [ED IV/MEDIPORT/POWERPORT] .ONCE EMERGENCY 12/03/17 18:00 Active BLOOD CULTURE (ED ONLY) Stat LAB 12/03/17 18:10 Received CBC W/ AUTO DIFF Stat LAB 12/03/17 18:10 Completed CMP [COMPREHENSIVE METABOLIC PANEL] Stat LAB 12/03/17 18:10 Completed LACTIC ACID Stat LAB 12/03/17 18:10 Completed PROCALCITONIN Stat LAB 12/03/17 18:10 Completed UA [URINALYSIS C & S IF INDICATED] Stat LAB 12/03/17 18:10 Completed URINE CULTURE Stat LAB 12/03/17 18:10 Received 0.9 % Sodium Chloride [Saline Flush] MEDS 12/03/17 18:00 Ordered 1 syr IVF PRN PRN Acetaminophen [Tylenol] MEDS 12/03/17 18:27 Discontinued 650 mg PO ONCE STA Nitrofurantoin Monohyd/M-Cryst [Macrobid] MEDS 12/03/17 21:00 Stat 100 mg PO ONCE STA Ondansetron HCl/Pf [Zofran 4 mg/2 ml] MEDS 12/03/17 18:26 Discontinued 4 mg IVP ONCE STA Sodium Chloride 0.9% [Sodium Chloride] 1,000 ml MEDS 12/03/17 18:[address] ABDOMEN/PELVIS W/WO CONTRAS Stat RADS 12/03/17 18:28 Completed Medications Generic Name Dose Route Start Last Admin Trade Name Freq PRN Reason Stop Dose Admin Sodium Chloride 1 syr 12/03/17 18:00 Saline Flush IVF PRN PRN To flush IV Discontinued Medications Generic Name Dose Route Start Last Admin Trade Name Freq PRN Reason Stop Dose Admin Acetaminophen 650 mg 12/03/17 18:27 12/03/17 18:37 Tylenol PO 12/03/17 18:28 650 mg ONCE STA Administration Sodium Chloride 1,000 mls @ 500 mls/hr 12/03/17 18:26 12/03/17 18:39 Sodium Chloride IV 12/03/17 20:25 500 mls/hr BOLUS STA Administration Nitrofurantoin Macrocrystals 100 mg 12/03/17 21:00 12/03/17 21:07 Macrobid PO 12/03/17 21:01 100 mg ONCE STA Administration Ondansetron HCl 4 mg 12/03/17 18:26 12/03/17 18:38 Zofran 4 Mg/2 Ml IVP 12/03/17 18:27 4 mg ONCE STA Administration Vital Signs: Temp Pulse Resp BP Pulse Ox 12/03/17 21:08 98.7 F 12/03/17 17:47 100.7 F H 124 H 16 115/79 97 Departure - Departure Time of Disposition: 20:55 Disposition: HOME SELF-CARE Discharge Problem: UTI (urinary tract infection) Instructions: Urinary Tract Infection in Women (ED) Condition: Good Pt referred to PMD for follow-up: Yes (PCP in 5-7 days) IPMP verified?: No Additional Instructions: Consume adequate oral fluids Practice good urinary hygeine Prescriptions: Nitrofurantoin Monohyd/M-Cryst [Macrobid 100 mg Capsule] 100 mg PO BID #14 capsule Allergies/Adverse Reactions: Allergies morphine Adverse Reaction (Verified 04/13/17 14:02) Home Medications: Ambulatory Orders Nitrofurantoin Monohyd/M-Cryst [Macrobid 100 mg Capsule] 100 mg PO BID #14 capsule 12/03/17
[2017-12-03] MEDS ORDERED: SODIUM CHLORIDE 1,000 ML IV STA (18:26)
[2017-12-03] MEDS ORDERED: ZOFRAN 4 MG/2 ML IVP STA (18:26)
[2017-12-03] MEDS ORDERED: TYLENOL PO STA (18:27)
--- NOTE | 2017-12-03 19:40 | CT ---
EXAM: CT of the abdomen and pelvis without contrast. CT of the abdomen and pelvis with contrast. HISTORY: Abdominal pain.. COMPARISONS: 04/13/2017 CONTRAST: 75 ml of Omnipaque 350 TECHNIQUE: Contiguous axial images at 5 mm intervals were obtained from the lung bases to the pubic symphysis, before contrast. Following the administration of IV contrast, contiguous axial images at 5 mm intervals were obtained from lung bases to the pubic symphysis. No oral contrast FINDINGS: CHEST: The lung bases are clear without consolidation or effusion. There are no suspicious nodules. Heart size is within normal limits. ABDOMEN: LIVER: The liver demonstrataes normal enhancement without solid mass lesions or intrahepatic du ctal dilatation. BILIARY SYSTEM: The gallbladder is absent. There are clips in the gallbladder fossa. There is no fluid or inflammation in the right upper quadrant. PANCREAS: The pancreas demonstrates normal enhancement without masses or peripancreatic inflamm ation. ADRENAL GLANDS: The adrenal glands are normal. SPLEEN: The spleeen is normal in size and appearance. No masses or abnormal enhancement. RENAL: The kidneys demonstrate normal enhancement and excretion of contrast. There are no cherrie d or enhancing masses, hydronephrosis or nephrolithiasis. There are no obstructing ureteral stones. AORTA: Normal opacification. No aortic aneurysm or dissection. RETROPERITONEUM: There is no significant retroperitoneal or mesenteric adenopathy. There are n o masses or fluid collections. GASTROINTESTINAL: The stomach is not well distended which limits evaluation. No gross abnorma lities. There are no dilated loops of small bowel to indicate a small bowel obstruction. There is n o evidence of colonic obstruction. A large amount of stool is seen throughout the colon. There is n o significant diverticulosis or evidence of acute diverticulitis. There is no free fluid free air or significant inflammatory process. The appendix is not identified on the study. There is no fluid o r inflammation in the right lower quadrant. There is no evidence of acute appendicitis. PELVIS: The bladder is not well distended. There is fluid in the endometrial canal. No free fluid is seen in the pelvis. OSSEOUS STRUCTURES: The osseous structures are normal for age. . IMPRESSION: 1. No acute intra-abdominal abnormalities. No free fluid, free air or significant inflammatory proc ess. 2. The appendix is not clearly identified. There is no fluid or inflammation in the right lower sean drant. 3. Post cholecystectomy.
[2017-12-03] MEDS ORDERED: MACROBID PO STA (21:00)
[2017-12-03 21:08] VITALS: TEMP 98.7
== END 2017-12-03 21:15 | disposition home or self-care (01) ==
LOC: ED 17:45
DX: N39.0 Urinary tract infection, site not specified (principal); F17.210 Nicotine dependence, cigarettes, uncomplicated
CPT/HCPCS: 36415; 80053; 81001; 83605; 84145; 85025; 87040; 87086; 87186; 96361; 96374; 99283

== ENCOUNTER 2018-01-02 12:47 | Emergency (ER) ==
[2018-01-02 13:15] VITALS: BP 91/61; TEMP 99; BMI 18.6
[2018-01-02] MEDS ORDERED: ZOFRAN 4 MG/2 ML IVP STA (14:04)
[2018-01-02] MEDS ORDERED: TORADOL IM STA (14:04)
--- NOTE | 2018-01-02 15:49 | CT ---
EXAM: CT Abdomen without contrast. CT Pelvis without contrast. HISTORY: Upper abdominal pain, nausea and diarrhea. COMPARISON: 12/03/2017. TECHNIQUE: Multiple axial images of the abdomen and pelvis were obtained without intravenous contras t. Images were reformatted in the sagittal and coronal plane. FINDINGS: Please note that evaluation of the abdominal and pelvic structures is limited due to lack of intravenous contrast. The lung bases are clear. Degenerative changes present in the spine, greatest at L5-S1. Gallbladder is absent. The liver, pancreas, spleen, adrenal glands, and kidneys demonstrate normal c ontour. There is mild-moderate fluid distension of multiple small bowel loops without bowel wall thickening o r transition point. Some liquid contents seen in the proximal colon. Colon is normal in distension without bowel wall thickening. The appendix is normal. Uterus demonstrates normal contour. Urinary bladder is collapsed. No free fluid or free air identified. Mild atherosclerotic calcifications ar e present IMPRESSION: Mild to moderate enteritis.
--- NOTE | 2018-01-02 16:15 | ED.PDOC ---
General ED Provider: Dr. JE GILBERT Chief Complaint: Diarrhea Stated Complaint: diarrhea , abdominal pain Time Seen by Physician: 13:00 Mode of Arrival: Walk-In Information Source: Patient Exam Limitations: No limitations Primary Care Provider: SHARAD GREGORIO Nursing and Triage Documentation Reviewed and Agree: Yes Reviewed sepsis parameters & appropriate labs ordered?: Yes System Inflammatory Response Syndrome: Not Applicable Sepsis Protocol: For patient's 13 years and over: Temp is 96.8 and below OR 101 and greater Pulse >90 BPM Resp >20/minute Acutely Altered Mental Status Are patient's symptoms suggestive of a new infection, such as: -Pneumonia -Skin, Soft Tissue -Endocarditis -UTI -Bone, Joint Infection -Implantable Device -Acute Abdominal Infection -Wound Infection -Meningitis -Blood Stream Catheter Infection -Unknown System Inflammatory Response Syndrome: Not Applicable GI Complaint Exam - Abdominal Pain Complaint/Exam Onset: Gradual Duration: 3 days Symptoms Are: Still present Timing: Intermittent Initial Severity: Moderate Current Severity: Moderate Location of Pain: Diffuse Radiates To: Reports: LLQ, RLQ. Denies: Chest, Back, Flank, Inguinal Character: Reports: Burning Aggravating: Reports: Food Alleviating: Reports: None Associated Signs and Symptoms: Reports: Nausea, Vomiting, Diarrhea. Denies: Diaphoresis, Fever, Cough, Chest pain, Dizziness, Back pain, Constipation, Blood in stool, Dysuria, Urinary frequency, Decreased urine output, Decreased appetite, Vaginal bleeding, Vaginal discharge, Sore throat, Decreased activity AAA Risk Factors: Reports: None Cardiac Risk Factors: Reports: None Ectopic Risk Factors: Reports: None Ovarian Torsion Risk Factors: Reports: None Surgical Obstruction Risk Factors: Reports: None Related Surgical History: Reports: None Patient Rh Status: Unknown Abdominal Findings: Present: None Differential Diagnoses: Appendicitis, Bowel Obstruction, Constipation, Diverticulitis, Gastroenteritis Review of Systems - Review Of Systems Constitutional: Reports: Malaise, Weakness Eyes: Reports: No symptoms Ears, Nose, Mouth, Throat: Reports: No symptoms Respiratory: Reports: No symptoms Cardiac: Reports: No symptoms GI: Reports: Abdominal pain, Diarrhea, Nausea, Poor appetite, Poor fluid intake , Vomiting : Reports: No symptoms Musculoskeletal: Reports: No symptoms Skin: Reports: No symptoms Neurological: Reports: No symptoms Endocrine: Reports: No symptoms Hematologic/Lymphatic: Reports: No symptoms All Other Systems: Reviewed and Negative Past Medical History - Past Medical History Previously Healthy: Yes Endocrine: Reports: None Cardiovascular: Reports: None Respiratory: Reports: None Hematological: Reports: None Gastrointestinal: Reports: None Genitourinary: Reports: UTI Neuro/Psych: Reports: None Musculoskeletal: Reports: None Cancer: Reports: None Last Menstrual Period: 1 1 1/2 years ago - Surgical History General Surgical History: Reports: None - Family History Family History: Reports: None - Social History Smoking Status: Current every day smoker, Heavy tobacco smoker Hx Substance Use: No Alcohol Screening: Occasionally Physical Exam - Physical Exam Appearance: Well-appearing, No pain distress, Well-nourished Eyes: CHRIS, EOMI, Conjunctiva clear ENT: Ears normal, Nose normal, Oropharynx normal Respiratory: Airway patent, Breath sounds clear, Breath sounds equal, Respirations nonlabored Cardiovascular: RRR, Pulses normal, No rub, No murmur GI/: Soft, Nontender, No masses, Bowel sounds normal, No Organomegaly Musculoskeletal: Normal strength, ROM intact, No edema, No calf tenderness Skin: Warm, Dry, Normal color Neurological: Sensation intact, Motor intact, Reflexes intact, Cranial nerves intact, Alert, Oriented Psychiatric: Affect appropriate, Mood appropriate Interpretation - Radiology Interpretation Radiology Interpretation By: Radiologist Radiology Results: Positive (enteritis) Critical Care Note - Critical Care Note Total Time (mins): 0 Course - Course Hematology/Chemistry: 01/02/18 14:15 01/02/18 14:15 Orders, Labs, Meds: Lab Review 01/02/18 01/02/18 01/02/18 14:15 14:15 14:15 WBC 9.77 RBC 4.77 Hgb 14.9 Hct 42.4 MCV 88.9 MCH 31.2 H MCHC 35.1 RDW Coeff of Axel 12.3 Plt Count 295 Immature Gran % (Auto) 0.4 Neut % (Auto) 75.1 Lymph % (Auto) 15.4 [place] % (Auto) 7.6 Eos % (Auto) 1.4 Baso % (Auto) 0.1 Immature Gran # (Auto) 0.0 Neut # (Auto) 7.3 H Lymph # (Auto) 1.5 [place] # (Auto) 0.7 Eos # (Auto) 0.1 Baso # (Auto) 0.0 Sodium 133 L Potassium 3.4 L Chloride 99 Carbon Dioxide 26 Anion Gap 11.4 BUN 10 Creatinine 0.67 Estimated GFR (MDRD) 98.00 BUN/Creatinine Ratio 14.92 Glucose 93 Calcium 8.7 Total Bilirubin 0.4 AST 14 L ALT 15 Alkaline Phosphatase 105 H Total Protein 7.8 Albumin 2.9 L Globulin 4.9 Albumin/Globulin Ratio 0.59 Serum , Qual Negative Urine Color Urine Clarity Urine pH Ur Specific [place] Urine Protein Urine Glucose (UA) Urine Ketones Urine Blood Urine Nitrite Urine Bilirubin Urine Urobilinogen Ur Leukocyte Esterase Urine Microscopic RBC Urine Microscopic WBC Ur Squamous Epith Cells Urine Bacteria Urine Mucus 01/02/18 15:50 WBC RBC Hgb Hct MCV MCH MCHC RDW Coeff of Axel Plt Count Immature Gran % (Auto) Neut % (Auto) Lymph % (Auto) [place] % (Auto) Eos % (Auto) Baso % (Auto) Immature Gran # (Auto) Neut # (Auto) Lymph # (Auto) [place] # (Auto) Eos # (Auto) Baso # (Auto) Sodium Potassium Chloride Carbon Dioxide Anion Gap BUN Creatinine Estimated GFR (MDRD) BUN/Creatinine Ratio Glucose Calcium Total Bilirubin AST ALT Alkaline Phosphatase Total Protein Albumin Globulin Albumin/Globulin Ratio Serum , Qual Urine Color Yellow Urine Clarity Clear Urine pH 6.0 Ur Specific [place] 1.020 Urine Protein Negative Urine Glucose (UA) Negative Urine Ketones Negative Urine Blood Negative Urine Nitrite Negative Urine Bilirubin 1+ Urine Urobilinogen 0.2 Ur Leukocyte Esterase Trace Urine Microscopic RBC 0-2 Urine Microscopic WBC 2-5 Ur Squamous Epith Cells 0-2 Urine Bacteria 1+ Urine Mucus 2+ Orders Category Date Time Status CBC W/ AUTO DIFF Stat LAB 01/02/18 14:15 Completed COMPREHENSIVE METABOLIC PANEL Stat LAB 01/02/18 14:15 Completed SERUM Stat LAB 01/02/18 14:15 Completed URINALYSIS C & S IF INDICATED Stat LAB 01/02/18 15:50 Completed URINE CULTURE Stat LAB 01/02/18 15:50 Received Ketorolac Tromethamine [Toradol] MEDS 01/02/18 14:04 Discontinued 60 mg IM ONCE STA Ondansetron HCl/Pf [Zofran 4 mg/2 ml] MEDS 01/02/18 14:04 Discontinued 8 mg IVP ONCE STA CT ABDOMEN/PELVIS WO CONTRAST Stat RADS 01/02/18 14:01 Completed Medications Discontinued Medications Generic Name Dose Route Start Last Admin Trade Name Freq PRN Reason Stop Dose Admin Ketorolac Tromethamine 60 mg 01/02/18 14:04 01/02/18 14:47 Toradol IM 01/02/18 14:05 60 mg ONCE STA Administration Ondansetron HCl 8 mg 01/02/18 14:04 01/02/18 14:47 Zofran 4 Mg/2 Ml IVP 01/02/18 14:05 8 mg ONCE STA Administration Vital Signs: Temp Pulse Resp BP Pulse Ox 01/02/18 13:02 99.0 F 108 H 20 91/61 98 Departure - Departure Time of Disposition: 16:16 Disposition: HOME SELF-CARE Discharge Problem: Diarrhea, Gastroenteritis Instructions: Gastroenteritis (ED), Gastroenteritis (DC), Acute Nausea and Vomiting (ED) Condition: Good Pt referred to PMD for follow-up: Yes IPMP verified?: No Additional Instructions: Please call your Family Physician as soon as possible to schedule a follow-up appointment. Prescriptions: Hydrocodone/Acetaminophen [[place] 10-325 Tablet] 1 each PO Q8HR #7 tablet Allergies/Adverse Reactions: Allergies morphine Adverse Reaction (Verified 01/02/18 13:38) Home Medications: Ambulatory Orders Hydrocodone/Acetaminophen [[place] 10-325 Tablet] 1 each PO Q8HR #7 tablet
== END 2018-01-02 16:25 | disposition home or self-care (01) ==
LOC: ED 12:47
DX: K52.9 Noninfective gastroenteritis and colitis, unspecified (principal); F17.210 Nicotine dependence, cigarettes, uncomplicated
CPT/HCPCS: 36415; 80053; 81001; 84703; 85025; 87086; 96372; 99283

== ENCOUNTER 2018-04-22 14:39 | Emergency (ER) ==
[2018-04-22 14:45] VITALS: TEMP 98.3; BMI 17.2
[2018-04-22] MEDS ORDERED: ZOFRAN 4 MG/2 ML IVP STA (14:55)
[2018-04-22] MEDS ORDERED: SODIUM CHLORIDE 1,000 ML IV STA (14:56)
[2018-04-22] MEDS ORDERED: AMIDATE IVP STA (14:56)
[2018-04-22] MEDS ORDERED: ANECTINE IVP STA (14:56)
[2018-04-22] MEDS ORDERED: DIPRIVAN 100 ML VIAL 100 ML IV ONE (15:26)
[2018-04-22] MEDS ORDERED: NORCURON IVP STA ×2 (15:28→18:22)
--- NOTE | 2018-04-22 15:29 | ED.PDOC ---
General ED Provider: Dr. JE GILBERT Chief Complaint: Overdose Stated Complaint: overdose Time Seen by Physician: 14:43 (pt was brought by EMS VERY LETHARGIC WITH GCS BETWEEN 8- 10 DRY HEAVING NOT VOMITING) Mode of Arrival: Wheelchair Information Source: Patient Exam Limitations: Altered mental status (GCS ABOUT 8-10) Primary Care Provider: SHARAD GREGORIO Nursing and Triage Documentation Reviewed and Agree: Yes (SOME YELLOW (3) CAPSULES NOTED TO BE GABAPENTIN) Does patient meet sepsis criteria?: Yes (WHITE SUBSTANCE WAS FOUND IN THE PT'S BRA ) If yes, has appropriate treatment been initiated?: No System Inflammatory Response Syndrome: Not Applicable (OVERDOSED ) Sepsis Protocol: For patient's 13 years and over: Temp is 96.8 and below OR 101 and greater Pulse >90 BPM Resp >20/minute Acutely Altered Mental Status Are patient's symptoms suggestive of a new infection, such as: -Pneumonia -Skin, Soft Tissue -Endocarditis -UTI -Bone, Joint Infection -Implantable Device -Acute Abdominal Infection -Wound Infection -Meningitis -Blood Stream Catheter Infection -Unknown Psychological Complaint Exam - Overdose/Toxic Exposure Complaint/Exam Patient Complains Of: Toxic Exposure (POSSIBLE METH BY ENLARGE TIME OF OVERDOSE AND SUBSTANC USED WAS KNOWN ) Ingestion Occurred: A MAN WHO WAS WITH HER DOES KNOW ABOUT ONSET OF OVERDOSE Exposure Occurred: SEE ABOVE Witnessed: No Ingestion: Medication, Unknown (SUBSTANCE ) Character: Reports: Oral Aggravating: Reports: Poly drug overdose (IS POSSIBLE ). Denies: Ipecac Treatment Prior To Arrival: Glucose (WAS CHECKED ON ARRIVAL WAS 114 ) Associated Signs And Symptoms: Reports: AMS, Agitation, Diaphoresis, Cough, Drooling, Intentional ingestion Completed Suicide Risk Factors: None Gag Reflex Present: Yes Inability To Swallow Present: Yes Drooling Present: Yes (SMALL AMOUNT) Glascow Coma Scale (see protocol): 11 TO 8 OR 9 Miosis Present: Yes Mydriasis Present: No Nystagmus Present: No Speech: Present: Slurred Aphasia: Present: None Gait: Present: Unable Patient Uncooperative For Exam: Yes Mood: Present: Agitated Appearance: Present: Clean Thought Process: Present: Illogical (BY ENLARGE UNKNOWN ) Review of Systems - Review Of Systems Constitutional: Reports: No symptoms Eyes: Reports: No symptoms Ears, Nose, Mouth, Throat: Reports: No symptoms Respiratory: Reports: No symptoms Cardiac: Reports: No symptoms GI: Reports: No symptoms : Reports: No symptoms Musculoskeletal: Reports: No symptoms Skin: Reports: No symptoms Neurological: Reports: Other (LETHARGIC , LATERED DROOLING ) Endocrine: Reports: No symptoms Hematologic/Lymphatic: Reports: No symptoms All Other Systems: Reviewed and Negative Past Medical History - Past Medical History Previously Healthy: Yes Endocrine: Reports: None Cardiovascular: Reports: None Respiratory: Reports: None Hematological: Reports: None Gastrointestinal: Reports: None Genitourinary: Reports: UTI Neuro/Psych: Reports: None Musculoskeletal: Reports: None Cancer: Reports: None Last Menstrual Period: "off and on" - Surgical History General Surgical History: Reports: None - Family History Family History: Reports: None - Social History Smoking Status: Current every day smoker, Heavy tobacco smoker Hx Substance Use: No Alcohol Screening: Occasionally Physical Exam - Physical Exam Appearance: Ill-appearing Ill-appearing: Severe Pain Distress: Moderate Eyes: CHRIS (PUPILS 2 MM SLUGGISH BILATERALLY) ENT: Ears normal, Nose normal, Oropharynx normal (DROOLING SMALL AMOUNTS) Respiratory: Airway patent, Breath sounds clear (SEE ABOVE), Breath sounds diminished Cardiovascular: RRR, Pulses normal, No rub, No murmur GI/: Soft, Nontender, No masses, Bowel sounds normal, No Organomegaly Musculoskeletal: Normal strength, ROM intact, No edema, No calf tenderness Skin: Warm, Dry, Normal color Neurological: Motor intact, Alert to pain (MOVING ALL EXT , LETHARGIC GCS 8-10) Psychiatric: Affect appropriate, Mood appropriate Interpretation - Radiology Interpretation Radiology Interpretation By: ED Physician Exam Interpreted: CXR (ET TUBE SATISFACTORY) - Dance Coach Rate: Normal Rhythm: Sinus Ectopy: None - EKG Interpretation Rate: Normal Rhythm: Sinus Ectopy: None [place]: NL ST Segment: Normal (NO ACUTE CHANGES NOTED) Procedures - Intubation Indication: Present: Respiratory Insufficiency, Altered Mental Status, Airway Protection (OVER DOSED RANGE OF GCS BETWEEN 8 TO 10) Time of Intubation: 15:19 Medications: Yes: Norcuron (6 MG), Succinylcholine (90 MG ,), Other (ETOMIDATE 10) Type of Tube Used: Endotracheal (7) Tube Size: 7 Cricoid Pressure Used: Yes Tube Maxwell Used: Yes Position of Tube at Lip: 20CM Number of Attempts: 1 Suction Used: Yes Glidescope Used: No CO2 Detector Used: Yes Lung Sounds Equal Bilaterally: Yes Intubation Complications: Present: No complications Tube Inserted By: OFELIA RUST Tube Placement Verified by X-ray: Yes Re-Evaluation - Re-Evaluation Time of Re-Evaluation: 15:00 Status: Unchanged Vital Signs Stable: Yes Pain Level: 0 Appearance: Other (CLEAN LETHARGIC MOANING MOVES EXT , DROOLING MINIMALY) Lungs: Clear Skin: Warm and Dry CV: RRR - Re-Evaluation Time of Re-Evaluation: 15:38 Status: Improved Vital Signs Stable: Yes (INTUBATED BY COCO Izagu[place]re) Pain Level: 0 Appearance: Other (NO LONGER ANXIOUS BUT SEDATED AND ON PARALYTICS) Skin: Warm and Dry CV: RRR (BLOD PRESSUE 114/84) Physician Notification - Case Discussed Physician Notified: ANTELMO RUST Time of Notification: 15:53 (TRANSFER ) Critical Care Note - Critical Care Note Total Time (mins): 90 Course - Course Hematology/Chemistry: 04/22/18 14:45 04/22/18 14:45 Orders, Labs, Meds: Lab Review 04/22/18 04/22/18 04/22/18 14:45 14:45 14:45 WBC 6.41 RBC 4.22 Hgb 13.0 Hct 36.8 L MCV 87.2 MCH 30.8 MCHC 35.3 RDW Coeff of Axel 12.6 Plt Count 273 Immature Gran % (Auto) 0.2 Neut % (Auto) 48.5 Lymph % (Auto) 40.1 [place] % (Auto) 9.2 Eos % (Auto) 1.7 Baso % (Auto) 0.3 Immature Gran # (Auto) 0.0 Neut # (Auto) 3.1 Lymph # (Auto) 2.6 [place] # (Auto) 0.6 Eos # (Auto) 0.1 Baso # (Auto) 0.0 PT INR APTT Puncture Site O2 Saturation ABG pH ABG pCO2 ABG pO2 ABG HCO3 ABG Total CO2 ABG Base Excess Micheal Test FiO2 % Sodium 139 Potassium 3.4 L Chloride 105 Carbon Dioxide 26 Anion Gap 11.4 BUN 14 Creatinine 0.73 Estimated GFR (MDRD) 89.00 BUN/Creatinine Ratio 19.17 Glucose 101 Calcium 9.4 Total Bilirubin 0.7 AST 17 ALT 18 Alkaline Phosphatase 91 Total Protein 7.1 Albumin 3.6 Globulin 3.5 Albumin/Globulin Ratio 1.03 Serum , Qual Negative Salicylate Level mg/dL < 5.0 Acetaminophen < 3 L Plasma/Serum Alcohol < 10.0 04/22/18 04/22/18 14:45 14:45 WBC RBC Hgb Hct MCV MCH MCHC RDW Coeff of Axel Plt Count Immature Gran % (Auto) Neut % (Auto) Lymph % (Auto) [place] % (Auto) Eos % (Auto) Baso % (Auto) Immature Gran # (Auto) Neut # (Auto) Lymph # (Auto) [place] # (Auto) Eos # (Auto) Baso # (Auto) PT 9.9 INR 0.99 APTT 26.4 Puncture Site Rr O2 Saturation 98.0 ABG pH 7.475 H ABG pCO2 34.4 L ABG pO2 93.0 ABG HCO3 25.3 ABG Total CO2 26 ABG Base Excess 2 Micheal Test + FiO2 % 21.0 Sodium Potassium Chloride Carbon Dioxide Anion Gap BUN Creatinine Estimated GFR (MDRD) BUN/Creatinine Ratio Glucose Calcium Total Bilirubin AST ALT Alkaline Phosphatase Total Protein Albumin Globulin Albumin/Globulin Ratio Serum , Qual Salicylate Level mg/dL Acetaminophen Plasma/Serum Alcohol Orders Category Date Time Status ABG DRAW REQUEST Stat CARDIO 04/22/18 14:45 Ordered EKG-(ED ONLY) Stat CARDIO 04/22/18 14:45 Ordered ACCUCHECK (ED) [ED ACCUCHECK ASSESSMENT] .ONCE EMERGENCY 04/22/18 14:46 Active ED TAX ASSOCIATE ATTORNEY APPLIED ONCE EMERGENCY 04/22/18 14:45 Active ED IV/MEDIPORT/POWERPORT .ONCE EMERGENCY 04/22/18 14:46 Active ABG Stat LAB 04/22/18 14:45 Completed ACETAMINOPHEN Stat LAB 04/22/18 14:45 Completed BLOOD ALCOHOL Stat LAB 04/22/18 14:45 Completed CBC W/ AUTO DIFF Stat LAB 04/22/18 14:45 Completed COMPREHENSIVE METABOLIC PANEL Stat LAB 04/22/18 14:45 Completed DRUG SCREEN, URINE, RAPID Stat LAB 04/22/18 14:45 Ordered PARTIAL THROMBOPLASTIN TIME Stat LAB 04/22/18 14:45 Completed PT WITH INR Stat LAB 04/22/18 14:45 Completed SALICYLATE Stat LAB 04/22/18 14:45 Completed SERUM Stat LAB 04/22/18 14:45 Completed URINALYSIS C & S IF INDICATED Stat LAB 04/22/18 14:45 Uncollected 0.9 % Sodium Chloride [Saline Flush] MEDS 04/22/18 14:46 Ordered 1 syr IVF PRN PRN Etomidate [Amidate] MEDS 04/22/18 14:56 Discontinued 10 mg IVP ONCE STA Ondansetron HCl/Pf [Zofran 4 mg/2 ml] MEDS 04/22/18 14:55 Discontinued 4 mg IVP ONCE STA Premix Vial [Premix Infusion 100 ml Vial] 1 vial MEDS 04/22/18 15:30 Ordered Propofol Inj [Diprivan 100 ml Vial] 1,000 mg IV 25 mcg/kg/min Propofol Inj [Diprivan 100 ml Vial] 100 ml MEDS 04/22/18 15:26 Discontinued IV .STK-MED Sodium Chloride 0.9% [Sodium Chloride] 1,000 ml MEDS 04/22/18 14:56 Active IV 125 mls/hr Succinylcholine Chloride [Anectine] MEDS 04/22/18 14:56 Discontinued 100 mg IVP ONCE STA Vecuronium [place] [Norcuron] MEDS 04/22/18 15:28 Discontinued 6 mg IVP ONCE STA CHEST, 1V AP ONLY Stat RADS 04/22/18 15:30 Taken Medications Generic Name Dose Route Start Last Admin Trade Name Freq PRN Reason Stop Dose Admin Sodium Chloride 1,000 mls @ 125 mls/hr 04/22/18 14:56 04/22/18 15:04 Sodium Chloride IV 04/22/18 22:55 125 mls/hr .Q8H STA Administration Propofol 1,000 mg/ Sterile 100 mls @ 7.24 mls/hr 04/22/18 15:30 04/22/18 15: 38 Water IV 25 mcg/kg/min .[id number] AMAIRANI 7.24 mls/hr Administration Protocol 25 MCG/KG/MIN Sodium Chloride 1 syr 04/22/18 14:46 04/22/18 15:04 Saline Flush IVF 1 syr PRN PRN Administration To flush IV Discontinued Medications Generic Name Dose Route Start Last Admin Trade Name Freq PRN Reason Stop Dose Admin Etomidate 10 mg 04/22/18 14:56 04/22/18 15:20 Amidate IVP 04/22/18 14:57 10 mg ONCE STA Administration Ondansetron HCl 4 mg 04/22/18 14:55 04/22/18 15:03 Zofran 4 Mg/2 Ml IVP 04/22/18 14:56 4 mg ONCE STA Administration Succinylcholine Chloride 100 mg 04/22/18 14:56 04/22/18 15:21 Anectine IVP 04/22/18 14:57 100 mg ONCE STA Administration Vecuronium [place] 6 mg 04/22/18 15:28 04/22/18 15:37 Norcuron IVP 04/22/18 15:29 6 mg ONCE STA Administration Vital Signs: Temp Pulse Resp BP Pulse Ox 04/22/18 15:38 79 14 114/83 04/22/18 15:30 14 04/22/18 14:40 98.3 F 105 H 20 115/78 98 Departure - Departure Time of Disposition: 16:30 Disposition: TSF SHORT-TRM HOSP Discharge Problem: Drug overdose Instructions: Adult Overdose (ED) Condition: Stable Pt referred to PMD for follow-up: Yes IPMP verified?: No Allergies/Adverse Reactions: Allergies morphine Adverse Reaction (Verified 04/22/18 14:45) Home Medications: Ambulatory Orders 1 [No Reported Medications] 04/22/18 Transfer Form Completed: Yes Disposition Discussed With: Family
[2018-04-22] MEDS ORDERED: DIPRIVAN 100 ML VIAL 1,000 MG in PREMIX INFUSION 100 ML VIAL 1 VIAL IV SCH (15:30)
--- NOTE | 2018-04-22 15:32 | ED.PDOC ---
Procedures - Intubation Indication: Present: Respiratory Insufficiency, Altered Mental Status Time of Intubation: 15:20 Medications: Yes: Norcuron, Succinylcholine, Other (amidate 10mg) Type of Tube Used: Endotracheal Tube Size: 7.5 Cricoid Pressure Used: Yes (per Cade Durant CRNA) Tube Maxwell Used: Yes Position of Tube at Lip: 20 Number of Attempts: 1 Suction Used: No Glidescope Used: No CO2 Detector Used: Yes Lung Sounds Equal Bilaterally: Yes Intubation Complications: Present: No complications Tube Inserted By: Dr Robertson/ Cade Durant CRNA Tube Placement Verified by X-ray: Yes Conscious Sedation - Pre-op Assessment Weight: 106 lb 7.732 oz Surgical History: GB - Medical History Past Medical History: None, Other Other History: hypoglycemia - Physical Exam Heart Rate/Rhythm: Tachycardia
[2018-04-22 15:39] VITALS: BP 114/83
--- NOTE | 2018-04-23 08:50 | DI ---
EXAM: Single view of the chest. History: Overdose, endotracheal tube placement. Comparison: Chest radiograph 10/29/2016 Findings: Heart size is normal. No focal consolidation. Apical emphysema. Endotracheal tube tip a t the level of the clavicles. No acute osseous abnormalities. No appreciable pleural fluid and no pn eumothorax. Impression: 1. Endotracheal tube placement. No pneumothorax. 2. Apical emphysema
== END 2018-04-22 16:45 | disposition short-term general hospital (02) ==
LOC: ED 14:39
DX: T65.91XA Toxic effect of unspecified substance, accidental (unintentional), initial encounter (principal); J80 Acute respiratory distress syndrome; R41.82 Altered mental status, unspecified; R40.2422 Glasgow coma scale score 9-12, at arrival to emergency department; F17.210 Nicotine dependence, cigarettes, uncomplicated
CPT/HCPCS: 36415; 80053; 80306; 80307; 81001; 82803; 82962; 84703; 85025; 85610; 85730; 87086; 87186; 93005; 93010; 94002; 96365; 96375; 96376; 99291

== ENCOUNTER 2018-04-22 16:52 | Outpatient (CLI) ==
[2018-04-22 14:45] VITALS: BMI 17.2
== END 2018-04-22 17:13 | disposition short-term general hospital (02) ==
LOC: AMBL 16:52
PROVIDERS: ATTEND Internal Medicine
DX: T65.91XA Toxic effect of unspecified substance, accidental (unintentional), initial encounter (principal); J98.8 Other specified respiratory disorders

== ENCOUNTER 2018-09-25 05:18 | Outpatient (CLI) | payer OTHER | END 2018-09-25 05:44 | disposition short-term general hospital (02) | LOC: AMBL 05:18 | PROVIDERS: ATTEND Family Medicine | DX: R42 Dizziness and giddiness (principal); G43.909 Migraine, unspecified, not intractable, without status migrainosus; N93.8 Other specified abnormal uterine and vaginal bleeding ==